=== PATIENT | female | born 1995 | race Caucasian/White ===

== ENCOUNTER 2018-12-07 15:00 | Outpatient (REF) | payer BC, SELFPAY ==
[2018-12-07 20:00] LABS: HCG Quant, Pregnancy 85 mIU/mL (1-3)
== END 2018-12-07 15:20 ==
LOC: NCHCN 15:00
PROVIDERS: PCP Nurse Practitioner Family; Visit Provider Nurse Practitioner Family
DX: N92.6 Irregular menstruation, unspecified (principal)
CPT/HCPCS: 84702

== ENCOUNTER 2018-12-27 10:44 | Outpatient (CLI) | payer BC, SELFPAY ==
--- NOTE | 2018-12-27 08:00 | DI.US_ITS ---
Many abnormalities cannot be diagnosed. A normal exam does not exclude a congenital anomaly. HISTORY: FIRST TRIMESTER BLEEDING,020.9 Date of exam: 12/27/18 LMP: 10/25/18 EDC by LMP: 08/01/19 Previous study: 9 wks Range: 8 to 10 EDC by prior us: Findings: Prior surgery/: BIOMETRY: PELVIC MEASUREMENTS: CRL: mm wks Uterus: 6.7 x 4.5 x 5.6 cm Yolk sac: mm wks Gest sac: 11 mm 5.6 wks Rt Ovary: 2.5 x 1.4 x 1.34 cm BPD: mm wks HC: mm wks Lt Ovary: 2.7 x 1.3 x 2.1 cm AC: mm wks FL: mm wks Comments: Normal (bilat) ovarian blood flow Composite Age (US): 5.6 wks EDC by US: 08/23/19 Heart Rate: BPM Amniotic Fluid: Oligo Normal Polyhydramnios Movement noted: Yes No There is a single intrauterine gestational sac. Estimated gestational age based on gestational sac size is 5 weeks 6 days. No pole or yolk sac was identified. There is a small amount of free fluid in the pelvis. The ovaries were visualized. They are normal in appearance. There is blood flow seen to both ovaries. No evidence of torsion is present. IMPRESSION: Single intrauterine gestational sac, estimated sonographic age is 5 weeks 6 days. No pole or yolk sac was identified. Based on the estimated gestational age of 9 weeks, this may represent a non viable . Follow up is recommended. This may include repeat beta HCG levels and/or repeat ultrasound. The findings were discussed with Chavez Álvarez on the date of the examination.
== END 2018-12-27 11:04 ==
PROVIDERS: PCP Nurse Practitioner Family; Visit Provider Obstetrics & Gynecology
DX: O20.9 Hemorrhage in early pregnancy, unspecified (principal); Z34.91 Encounter for supervision of normal pregnancy, unspecified, first trimester
CPT/HCPCS: 76801

== ENCOUNTER 2018-12-28 11:34 | Outpatient (CLI) | payer BC, SELFPAY ==
[2018-12-28 13:37] LABS: HCG Quant, Pregnancy 9140 mIU/mL (1-3)
== END 2018-12-28 11:54 ==
PROVIDERS: Obstetrics & Gynecology; PCP Nurse Practitioner Family; Visit Provider Obstetrics & Gynecology Gynecology
DX: Z34.90 Encounter for supervision of normal pregnancy, unspecified, unspecified trimester (principal); O20.9 Hemorrhage in early pregnancy, unspecified
CPT/HCPCS: 36415; 86900; 86901; 84702

== ENCOUNTER 2018-12-29 06:00 | Day surgery (SDC) | payer BC, SELFPAY ==
[2018-12-29 06:22] VITALS: BP 107/68; PULSE 78; RESP 16; TEMP 37.1; O2SAT 98
--- NOTE | 2018-12-29 08:22 | NUR.NOTE ---
Nursing Note: 12/29/18 @ 0810 Rhogam injection given Right deltoid Lot # [id number] exp 02/11/[address] Prescott. bmr
--- NOTE | 2018-12-29 14:39 | W.PM.DSUDISC ---
Discharge Plan Disposition Patient Disposition: HOME Condition: Good Discharge Details Attending Provider: Angeles Castle Primary Care Provider: Yen Britt Home Meds and New Rx's Prescriptions: No Action acetaminophen [Tylenol Extra Strength] 500 mg tablet 1,000 mg PO Q6H PRN (Reason: migraine headache) RF: 0 prenat.vits,asaf,upg-buai-gkpma tablet 1 tab PO DAILY RF: 0 doxycycline hyclate 100 mg capsule 100 mg PO DAILY Qty: 3 RF: 0 ibuprofen [Motrin IB] 200 mg Tablet 800 mg PO PRN PRNRF: 0 Discharge Instructions Additional Instructions: Prior to today's scheduled surgery he had side transvaginal ultrasound was performed and showed no evidence of gestational sac. The endometrial stripe measured 1.25 cm. All evidence indicates that you have tissue. Procedure has been canceled. C dose of RhoGam prior to discharge and follow-up with Dr. Castle next week at which time we will repeat the hCG. Please refrain from sexual intercourse. Nothing in the vagina no tampons until your next office visit. Stand Alone Forms: Mendez Childs (DSU) Activity:: Activity as Tolerated Diet:: As Tolerated Discharge Orders Discharge Orders: Discharge Order (Routine); Ordered 12/29/18 Ordered By: Angeles Castle Discharge Data Discharge Date/Time-TO BE ENTERED AT DEPARTURE: 12/29/18 08:20 DS: Diagnosis Discharge Diagnosis (1) SAB (spontaneous ): Status: Acute
--- NOTE | 2018-12-29 14:43 | PDOC.DSDIS_ITS ---
Discharge Plan Disposition Patient Disposition: HOME Condition: Good Discharge Details Attending Provider: Angeles Castle Primary Care Provider: Yen Britt Home Meds and New Rx's Prescriptions: No Action acetaminophen [Tylenol Extra Strength] 500 mg tablet 1,000 mg PO Q6H PRN (Reason: migraine headache) RF: 0 prenat.vits,asaf,dac-tczb-gqqwo tablet 1 tab PO DAILY RF: 0 doxycycline hyclate 100 mg capsule 100 mg PO DAILY Qty: 3 RF: 0 ibuprofen [Motrin IB] 200 mg Tablet 800 mg PO PRN PRNRF: 0 Discharge Instructions Additional Instructions: Prior to today's scheduled surgery he had side transvaginal ultrasound was performed and showed no evidence of gestational sac. The endometrial stripe measured 1.25 cm. All evidence indicates that you have tissue. Procedure has been canceled. C dose of RhoGam prior to discharge and follow-up with Dr. Castle next week at which time we will repeat the hCG. Please refrain from sexual intercourse. Nothing in the vagina no tampons until your next office visit. Stand Alone Forms: Mendez Childs (DSU) Activity:: Activity as Tolerated Diet:: As Tolerated Discharge Orders Discharge Orders: Discharge Order (Routine); Ordered 12/29/18 Ordered By: Angeles Castle Discharge Data Discharge Date/Time-TO BE ENTERED AT DEPARTURE: 12/29/18 08:20 DS: Diagnosis Discharge Diagnosis (1) SAB (spontaneous ): Status: Acute
== END 2018-12-29 08:20 | disposition home or self-care (01) ==
PROVIDERS: PCP Nurse Practitioner Family; Visit Provider Obstetrics & Gynecology Gynecology
DX: O02.0 Blighted ovum and nonhydatidiform mole (principal); O26.893 Other specified pregnancy related conditions, third trimester; Z67.41 Type O blood, Rh negative
CPT/HCPCS: 96372; 86850; 90384; 99211

== ENCOUNTER 2019-01-19 14:04 | Outpatient (CLI) | payer BC, SELFPAY ==
[2019-01-19 15:47] LABS: HCG Quant, Pregnancy 5 mIU/mL (1-3)
== END 2019-01-19 14:24 ==
PROVIDERS: PCP Nurse Practitioner Family; Visit Provider Obstetrics & Gynecology Gynecology
DX: O03.9 Complete or unspecified spontaneous abortion without complication (principal)
CPT/HCPCS: 36415; 84702

== ENCOUNTER 2019-08-27 17:07 | Outpatient (REF) | payer BC, MEDICAID, SELFPAY ==
[2019-08-27 18:48] LABS: *AMPHETAMINES SCREEN URINE Negative (Negative); *BARBITURATES SCREEN URINE Negative (Negative); *BENZODIAZEPINES SCREEN URINE Negative (Negative); Cannabinoids THC Negative (Negative); Cocaine Screen,Urine Negative (Negative); METHADONE URINE SCREEN Negative (Negative); OPIATES URINE SCREEN Negative (Negative)
[2019-08-27 18:51] LABS: Tricyclic Antidepressants Negative (Negative)
[2019-08-29 13:52] LABS: Chlamydia Result Negative (Negative); GC Result Negative (Negative)
[2019-09-01 20:32] LABS: Buprenorphine Negative; Norbuprenorphine Negative
== END 2019-08-27 17:27 ==
LOC: LBN 17:07
PROVIDERS: PCP Nurse Practitioner Family; Visit Provider Advanced Practice Midwife
DX: Z34.91 Encounter for supervision of normal pregnancy, unspecified, first trimester (principal); Z11.3 Encounter for screening for infections with a predominantly sexual mode of transmission
CPT/HCPCS: 80307; 87491; 87591; 87086

== ENCOUNTER 2019-10-15 01:42 | Outpatient (CLI) | payer MEDICAID, SELFPAY ==
--- NOTE | 2019-10-15 12:00 | DI.US_ITS ---
EXAM: US OB 2-3 TRIMESTER CLINICAL HISTORY: ROUTINE PNC, Z34.90 TECHNIQUE: Ultrasound performed using standard protocol. COMPARISON: US OB 1st trimester from 12/27/2018 FINDINGS: OB ultrasound was performed utilizing 2nd trimester protocol. biometry is consistent with gest ational age of 18 weeks 6 days and an EDC of 03/11/2020. Placenta is posterior and there is no evide nce of placenta previa. There is a normal quantity of amniotic fluid. cardiac rate is 144 BPM. anomaly screen is within normal limits as per the attached [facility] klist. DATA REPOSITORY:
[2019-10-15 12:17] LABS: Abs Immature Grans 0.03 k/cumm (0.0-0.09); Absolute Basophil Count 0.01 k/cumm (0.0-0.2); Absolute Eosinophil Count 0.04 k/cumm (0.0-0.7); Absolute Lymphocyte Count 1.58 k/cumm (1.2-3.4); Absolute Monocyte Count 0.49 k/cumm (0.11-0.7); Absolute Neutrophil Count 7.76 k/cumm (1.2-6.7); Basophils % 0.1; Eosinophils % 0.4; HCT 32.5 % (36.0-46.0); HGB 11.3 g/dL (12.0-15.5); Immature Grans % 0.3 %; Lymphocytes % 15.9; Mean Corp. HGB Concentration 34.8 g/dL (32.0-36.0); Mean Corpuscular Hemoglobin 30.1 pg (27.0-33.0); Mean Corpuscular Volume 86.4 fL (80-95); Mean Platelet Volume 9.3 fL (8.0-11.0); Monocytes % 4.9; Neutrophils % 78.4; Platelet Count 295 x1000/uL (130-400); RBC 3.76 m/cumm (4.00-5.20); RBC Distribution Width 13.6 % (11.7-14.6); White Blood Cell Count 9.91 k/cumm (4.4-10.8)
[2019-10-16 09:47] LABS: Hepatitis B Surface Ag Negative (Negative)
[2019-10-16 10:08] LABS: HIV-1/2 Ag & Ab Screen Negative (Negative)
[2019-10-16 10:19] LABS: Hepatitis C Ab w Rflx HCV PCR Negative (Negative)
[2019-10-16 10:27] LABS: Rubella IgG Ab (UVM) Positive (See Note); Varicella IgG Antibody Positive (See Note)
[2019-10-16 13:49] LABS: Syphilis Total Ab w/Reflex Nonreactive (Nonreactive)
== END 2019-10-15 02:02 ==
PROVIDERS: PCP Nurse Practitioner Family; Visit Provider Advanced Practice Midwife
DX: Z34.92 Encounter for supervision of normal pregnancy, unspecified, second trimester (principal); Z3A.18 18 weeks gestation of pregnancy
CPT/HCPCS: 36415; 86787; 86803; 86850; 86900; 86901; 87340; 87389; 76805; 85025; 86762; 86780

== ENCOUNTER 2019-12-24 12:48 | Outpatient (REF) | payer MEDICAID, SELFPAY ==
[2019-12-24 11:06] LABS: HCT 34.4 % (36.0-46.0); HGB 11.6 g/dL (12.0-15.5); Mean Corp. HGB Concentration 33.7 g/dL (32.0-36.0); Mean Corpuscular Volume 88.9 fL (80-95); Mean Platelet Volume 9.7 fL (8.0-11.0); Platelet Count 295 x1000/uL (130-400); RBC 3.87 m/cumm (4.00-5.20); RBC Distribution Width 13.3 % (11.7-14.6); White Blood Cell Count 11.34 k/cumm (4.4-10.8)
[2019-12-24 11:18] LABS: Glucose,1 Hr (Glucola) 99 mg/dL (80-140)
== END 2019-12-24 13:08 ==
LOC: LBN 12:48
PROVIDERS: PCP Nurse Practitioner Family; Visit Provider Advanced Practice Midwife
DX: Z34.93 Encounter for supervision of normal pregnancy, unspecified, third trimester (principal)
CPT/HCPCS: 82950; 85027; 86850; 90384

== ENCOUNTER 2020-02-18 06:58 | Observation (INO) | payer MEDICAID, SELFPAY ==
[2020-02-18 07:41] LABS: ROM Plus Positive
[2020-02-18 11:34] LABS: *AMPHETAMINES SCREEN URINE Negative (Negative); *BARBITURATES SCREEN URINE Negative (Negative); *BENZODIAZEPINES SCREEN URINE Negative (Negative); Cannabinoids THC Negative (Negative); Cocaine Screen,Urine Negative (Negative); METHADONE URINE SCREEN Negative (Negative); OPIATES URINE SCREEN Negative (Negative)
[2020-02-18 11:36] LABS: Tricyclic Antidepressants Negative (Negative)
[2020-02-20 15:16] LABS: Misc Referral (UVM) NEGATIVE
== END 2020-02-18 09:40 | disposition home or self-care (01) ==
LOC: OBS 10:06
PROVIDERS: Admitting Provider Advanced Practice Midwife; PCP Nurse Practitioner Family; Visit Provider Advanced Practice Midwife
DX: Z03.71 Encounter for suspected problem with amniotic cavity and membrane ruled out (principal); Z3A.36 36 weeks gestation of pregnancy; O47.1 False labor at or after 37 completed weeks of gestation
CPT/HCPCS: 80307; 84112; 87653; 59025; 87081; G0378

== ENCOUNTER 2020-02-20 14:12 | Inpatient (IN) | payer MEDICAID, SELFPAY ==
[2020-02-20 15:22] LABS: Abs Immature Grans 0.17 10^3/uL (0.0-0.06); Absolute Lymphocyte Count 2.44 10^3/uL (1.2-3.4); Absolute Monocyte Count 0.95 10^3/uL (0.1-0.8); Basophils % 0.1; Eosinophils % 0.7; HCT 34.7 % (36.0-46.0); HGB 12.1 g/dL (11.2-15.7); Immature Grans % 1.2; Lymphocytes % 17.2; MCH 29.9 pg (27.0-33.0); MCHC 34.9 % (32.0-36.0); MCV 85.7 fL (80-95); MPV 9.8 fL (8.0-11.0); Monocytes % 6.7; Neutrophils % 74.1; Platelet Count 245 10^3/uL (130-400); RBC 4.05 10^6/uL (3.93-5.22); RDW 13.2 % (11.7-14.6); RDW-SD 40.6 fL; WBC 14.16 10^3/uL (4.4-10.8)
[2020-02-20 15:24] LABS: Absolute Basophil Count 0.01 10^3/uL (0.0-0.2); Absolute Neutrophil Count 10.49 10^3/uL (1.2-6.7)
[2020-02-20] MEDS: miSOPROStol 25 MCG TAB PO (17:16)
[2020-02-20] MEDS: Zolpidem 5 MG TAB 10 MG PO (21:20)
[2020-02-21] MEDS: Hamamelis Leaf/Glycerin 100 EACH BOX PR (04:09)
[2020-02-21] MEDS: Oxytocin 10 UNITS/ML VIAL IM (04:10)
[2020-02-21 08:26] LABS: COVID-19 RT-PCR UVMMC Result Negative (Negative)
[2020-02-21 10:22] LABS: HCT 32.6 % (36.0-46.0); HGB 11.4 g/dL (11.2-15.7); MCH 29.9 pg (27.0-33.0); MCV 85.6 fL (80-95); Platelet Count 247 10^3/uL (130-400); RBC 3.81 10^6/uL (3.93-5.22); RDW-SD 39.7 fL
[2020-02-21 10:25] LABS: WBC 27.68 10^3/uL (4.4-10.8)
[2020-02-21] MEDS: Acetaminophen 325 MG TAB 650 MG PO ×2 (13:39→22:32)
[2020-02-21] MEDS: Calcium Carbonate *TUMS* 500 MG CHEW PO (15:21)
[2020-02-21] MEDS: Ibuprofen 600 MG TAB PO (22:32)
[2020-02-21] MEDS: Docusate Sodium 100 MG CAP PO (22:32)
[2020-02-22] MEDS: Ibuprofen 600 MG TAB PO ×2 (06:21→17:39)
[2020-02-22] MEDS: Acetaminophen 325 MG TAB 650 MG PO ×2 (06:21→14:29)
[2020-02-22] MEDS: Calcium Carbonate *TUMS* 500 MG CHEW PO (17:07)
[2020-02-22] MEDS: Mylanta Suspension 30 ML CUP PO (17:33)
[2020-02-22] MEDS: Docusate Sodium 100 MG CAP PO (17:39)
[2020-02-23 06:18] LABS: HCT 32.3 % (36.0-46.0); HGB 10.9 g/dL (11.2-15.7); MCH 29.7 pg (27.0-33.0); MCHC 33.7 % (32.0-36.0); MPV 9.9 fL (8.0-11.0); Platelet Count 242 10^3/uL (130-400); RBC 3.67 10^6/uL (3.93-5.22); RDW 13.3 % (11.7-14.6); RDW-SD 42.5 fL; WBC 14.66 10^3/uL (4.4-10.8)
== END 2020-02-23 13:30 | disposition home or self-care (01) | DRG 805 ==
PROVIDERS: Advanced Practice Midwife; Admitting Provider Advanced Practice Midwife; PCP Nurse Practitioner Family; Visit Provider Advanced Practice Midwife
DX: O42.013 Preterm premature rupture of membranes, onset of labor within 24 hours of rupture, third trimester (principal); O60.14X0 Preterm labor third trimester with preterm delivery third trimester, not applicable or unspecified; Z37.0 Single live birth; O69.1XX0 Labor and delivery complicated by cord around neck, with compression, not applicable or unspecified; Z3A.36 36 weeks gestation of pregnancy; Z11.59 Encounter for screening for other viral diseases; Z67.41 Type O blood, Rh negative
CPT/HCPCS: 36415; 85027; 85461; 86850; 86900; 86901; 90384; U0003; 85025; 86870; 86902; G0378; J2590; J2790; J3490

== ENCOUNTER 2020-12-09 15:03 | Outpatient (REF) | payer MEDICAID, SELFPAY ==
[2020-12-09 14:47] LABS: HCT 40.5 % (36.0-46.0); MCHC 34.6 % (32.0-36.0); MCV 83.9 fL (80-95); MPV 10.4 fL (8.0-11.0); Platelet Count 316 10^3/uL (130-400); RBC 4.83 10^6/uL (3.93-5.22); RDW 12.1 % (11.7-14.6); RDW-SD 36.9 fL; WBC 6.92 10^3/uL (4.4-10.8)
[2020-12-09 15:38] LABS: TSH (W/Ref FT4) 1.01 uIU/mL (0.36-3.74)
[2020-12-09 15:49] LABS: Iron 73 ug/dL (50-170); Total Iron Binding Capacity 468 ug/dL (250-450); Transferrin Sat 16 % (15-50)
[2020-12-09 16:02] LABS: Ferritin 27 ng/mL (8-252)
== END 2020-12-09 15:04 | disposition home or self-care (01) ==
LOC: NCHCN 15:03
PROVIDERS: PCP Nurse Practitioner Family; Visit Provider Nurse Practitioner Family
DX: R53.83 Other fatigue (principal); R79.89 Other specified abnormal findings of blood chemistry
CPT/HCPCS: 85027; 82728; 83540; 83550; 84443

== ENCOUNTER 2021-08-03 04:15 | Outpatient (CLI) | payer MEDICAID, SELFPAY ==
[2021-08-03 15:42] LABS: Kit/Specimen SENT
[2021-08-03 16:40] LABS: Abs Immature Grans 0.03 10^3/uL (0.0-0.06); Absolute Basophil Count 0.03 10^3/uL (0.0-0.2); Absolute Eosinophil Count 0.16 10^3/uL (0.0-0.7); Absolute Lymphocyte Count 2.43 10^3/uL (1.2-3.4); Absolute Monocyte Count 0.49 10^3/uL (0.1-0.8); Absolute Neutrophil Count 7.96 10^3/uL (1.2-6.7); Basophils % 0.3; Eosinophils % 1.4; HCT 37.3 % (36.0-46.0); HGB 12.9 g/dL (11.2-15.7); Immature Grans % 0.3; Lymphocytes % 21.9; MCH 29.3 pg (27.0-33.0); MCHC 34.6 % (32.0-36.0); MCV 84.8 fL (80-95); Monocytes % 4.4; Neutrophils % 71.7; Nucleated RBC 0 %; Platelet Count 320 10^3/uL (130-400); RDW 12.6 % (11.7-14.6); RDW-SD 38.8 fL
[2021-08-03 17:01] LABS: TSH (W/Ref FT4) 0.86 uIU/mL (0.36-3.74)
[2021-08-04 10:28] LABS: Varicella IgG Antibody Positive (See Note)
[2021-08-04 10:30] LABS: Hepatitis B Surface Ag Negative (Negative)
[2021-08-04 10:38] LABS: Rubella IgG Ab (UVM) Positive (See Note)
[2021-08-04 11:08] LABS: Hepatitis C Ab w Rflx HCV PCR Negative (Negative)
[2021-08-04 11:23] LABS: HIV-1/2 Ag & Ab Screen Negative (Negative)
[2021-08-04 15:00] LABS: Syphilis Total Ab w/Reflex Nonreactive (Nonreactive)
[2021-08-11 13:10] LABS: Result Summary NEGATIVE; Specimen WB Whole Blood
== END 2021-08-03 04:16 | disposition home or self-care (01) ==
LOC: LBO 04:16
PROVIDERS: PCP Nurse Practitioner Family; Visit Provider Advanced Practice Midwife
DX: Z34.81 Encounter for supervision of other normal pregnancy, first trimester
CPT/HCPCS: 36415; 86787; 86803; 86850; 86900; 86901; 87340; 87389; 81220; 84443; 85025; 86762; 86780

== ENCOUNTER 2021-08-03 15:05 | Outpatient (REF) | payer MEDICAID, SELFPAY ==
--- NOTE | 2021-08-03 14:10 | PAPFT_PTH ---
PATIENT: Marta Martínez LOC: [facility] U#:[id number] AGE/SX: 25/F ROOM: RE08/03/[address]: Kelsey Adler : 1995 BED: DIS: 08/03/2021 SPEC #: [id number] RECD: 08/03/21 17:37 STATUS: ROSE REQ #: [id number] WISAM: 08/03/21 14:[address]: Kelsey Adler DEPT: [facility] Cytology RECD BY: Yoanna Schroeder ENTERED: 08/03/21 17:37 SP TYPE: PAPFT OTHR DR: Caroline Mccallum Tissues: 1 - CX/ENDOCX FOR PAP SMEARS Procedures: PAP THIN PREP/UVM Screening Comments: [id number]
[2021-08-03 18:08] LABS: *AMPHETAMINES SCREEN URINE Negative (Negative); *BARBITURATES SCREEN URINE Negative (Negative); *BENZODIAZEPINES SCREEN URINE Negative (Negative); Cannabinoids THC Negative (Negative); Cocaine Screen,Urine Negative (Negative); METHADONE URINE SCREEN Negative (Negative); OPIATES URINE SCREEN Negative (Negative)
[2021-08-03 18:48] LABS: Tricyclic Antidepressants Negative (Negative)
[2021-08-05 15:27] LABS: Chlamydia Result Negative (Negative); GC Result Negative (Negative)
[2021-08-08 14:57] LABS: Buprenorphine Negative ng/mL (Cutoff: 5.0); Norbuprenorphine Negative ng/mL (Cutoff: 2.5)
== END 2021-08-03 15:06 | disposition home or self-care (01) ==
LOC: LBN 15:05
PROVIDERS: PCP Nurse Practitioner Family; Visit Provider Advanced Practice Midwife
DX: Z34.91 Encounter for supervision of normal pregnancy, unspecified, first trimester; Z12.4 Encounter for screening for malignant neoplasm of cervix; Z11.3 Encounter for screening for infections with a predominantly sexual mode of transmission
CPT/HCPCS: 80307; 87491; 87591; 88142; 87086

== ENCOUNTER 2021-09-25 00:58 | Outpatient (CLI) | payer MEDICAID, SELFPAY ==
--- NOTE | 2021-09-25 07:00 | DI.US_ITS ---
Exam(s) US OB 2-3 TRIMESTER EXAM: US OB 2-3 TRIMESTER CLINICAL HISTORY: 18 wk anatomy survey,z34.90. TECHNIQUE: Transabdominal obstetrical ultrasound performed. COMPARISON: No priors for comparison. FINDINGS: Transabdominal obstetrical ultrasound performed. FINDINGS: Number of fetuses: One. position: Breech. heart rate: heart motion was visualized. The heart rate was not obtained during th is examination. Placental location: There is a grade 1 anterior placenta. No evidence of previa. Amniotic fluid index: Amount of fluid is within normal limits. ANATOMICAL SURVEY: Within normal limits. BIOMETRIC DATA: BPD: 4.5cm consistent with 19 weeks 3 days. HC: 16.7cm consistent with 19 weeks 3 days. AC: 14.1cm consistent with 19 weeks 3 days. FL: 3.1cm consistent with 19 weeks 3 days. Cisterna Magna: 3.6 mm Cerebellum: 1.93 cm EFW: 293 grms 46% Composite Age: 19 weeks 3 days EDC by US: 02/16/2022 IMPRESSION: 1. Single live intrauterine gestation as above. 2. Normal anatomic survey. DATA REPOSITORY:
== END 2021-09-25 01:18 ==
PROVIDERS: PCP Nurse Practitioner Family; Visit Provider Advanced Practice Midwife
DX: Z34.92 Encounter for supervision of normal pregnancy, unspecified, second trimester (principal); Z3A.18 18 weeks gestation of pregnancy
CPT/HCPCS: 76805

== ENCOUNTER 2021-11-24 02:37 | Outpatient (CLI) | payer MEDICAID, SELFPAY ==
[2021-11-24 10:12] LABS: HCT 33.8 % (36.0-46.0); HGB 11.2 g/dL (11.2-15.7); MCH 29.2 pg (27.0-33.0); MCHC 33.1 % (32.0-36.0); MCV 88 fL (80-95); MPV 9.6 fL (8.0-11.0); Platelet Count 241 10^3/uL (130-400); RBC 3.83 10^6/uL (3.93-5.22); RDW 13.2 % (11.7-14.6); RDW-SD 42.2 fL; WBC 11.54 10^3/uL (4.4-10.8)
[2021-11-24 10:22] LABS: Glucose,1 Hr (Glucola) 92 mg/dL (80-140)
== END 2021-11-24 02:38 | disposition home or self-care (01) ==
LOC: LBO 02:37
PROVIDERS: PCP Nurse Practitioner Family; Visit Provider Advanced Practice Midwife
DX: O36.0130 Maternal care for anti-D [Rh] antibodies, third trimester, not applicable or unspecified (principal); Z3A.28 28 weeks gestation of pregnancy
CPT/HCPCS: 36415; 82950; 85027; 86850; 90384

== ENCOUNTER 2022-01-01 11:08 | Outpatient (CLI) | payer MEDICAID, SELFPAY ==
[2022-01-01 11:26] VITALS: BP 116/68; PULSE 81; TEMP 36.6
[2022-01-01 11:30] VITALS: BP 116/68; PULSE 81
[2022-01-01 11:42] VITALS: BP 116/68; PULSE 81
--- NOTE | 2022-01-01 11:55 | HPE_ITS ---
Date of service: 01/01/22 Time of Service: 11:55 Assessment and Plan Assessment and plan (1) Pelvic pressure in : Status: Acute Assessment and plan: NST and GBS swab. Cean catch urine for urinalysis, culture if indicated. Rest an fluids encouraged. OB-HPI Labor/Delivery History of Present Illness Reason for Visit: rule out labor Chief Complaint: Other (pelvic pressure and clear discharge). DESHAUN Calculator Estimated Delivery Date Method Current WG Current Estimate 02/16/22 LMP (Certain) 33w 3d Other Estimates 02/15/22 Ultrasound #1 33w 4d Comments: Marta called and reports pelvic pressure. She has been experiencing clear thick discharge. She denies leaking of water. She reports occasional abdominal tightening. She reported to nurse on admission that she has not been drinking a lot of water today. History of Present Expected Delivery Route/Plan - CNM FOB/ - William Martínez (2nd child together) BG Would like to have a waterbirth Specific Issues/Plan 1. Migraines in the past- not during . 2. GERD - no symptoms currently after stopping NSAIDS 3. palpitations and heart murmur in the past- cardiac workup neg in the past. Avoids caffeine 4. Fam Hx heart defect - FOB's uncle and brother - Level II US offered- referral sent to [facility] 5. Genetic testing options reviewed - Panorama and CF drawn. Declines AFP single marker screen. 5a. CF neg. Panorama result is low risk, female fetus. 6. Rh neg - Rhogam @ 28 wks, done 11/24/21 7. /latching difficulty with first baby- visit 8. Amilcar are covid vaccinated, haven't received booster 9. Sciatica, neck pain and tailbone pain after 1st - referred to [facility]. 10. heartburn - Taking TUMS and milk for relief. PFSH All Active Problems (Updated 01/01/22 @ 12:01 by Kelsey Adler CNM) Pelvic pressure in (Acute) Rh negative state in antepartum period (Acute) Coccygeal pain (Acute) since first delivery Neck pain (Acute) Sciatica (Acute) (Acute) Heart murmur (Acute) Tension headache (Acute 03/04/15) Migraine headache with aura (Acute 03/04/15) Medical History (Updated 01/01/22 @ 12:01 by Kelsey Adler CNM) Anxiety after her first . Saw a counselor Family history of thyroid disease GERD (gastroesophageal reflux disease) Palpitations Surgical History History of esophagogastroduodenoscopy (EGD) Family History (Updated 08/03/21 @ 14:58 by Kelsey Adler CNM) Mother Hypertension Ulcerative colitis Migraine Maternal Grandfather Parkinsons COPD (chronic obstructive pulmonary disease) Diabetes Hypertension Maternal Grandmother Rheumatoid arthritis Hypertension Thyroid disease Brother Depression Social History (Updated 12/28/18 @ 17:44 by Angeles Castle MD) Smoking/Tobacco Use Status: Never Smoking risk assessment performed?: Yes Alcohol Intake: current Alcohol Intake frequency: a few times a month Alcohol type: beer and wine Drug use: Never Substance use type: does not use Details: No alcohol since the end of september, in the past may have one beer or wine cooler every week or so. Household members: spouse and other Details: during the summer. H - works on local [employer]. 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 Do you feel safe at home: Yes Do you feel safe in your relationship?: Yes Female Reproductive History Menstrual Age of Menarche: 13 control method: none History History 3 Para 1 Hx # Term Pregnancies 1 Multiple births 0 Hx # Pregnancies 0 Ectopic pregnancies 0 AB induced 0 Hx Number of Living Children 1 AB spontaneous 1 Past Pregnancies Del. Date GA/Weeks # Outcome Route Wgt Sex Labor Lgth Anesthes ia Location Prov Complic 12/28/18 9 No Unsuccessful 02/21/20 37 No Successful vaginal Female 6 hours K athleen Delivery Date: 12/28/18 Last Updated by: Mary Chow LPN 1st trimester loss, SAB, Dr. Castle Delivery Date: 02/21/20 Last Updated by: Kelsey Adler CNM IOL for PROM at 37 weeks, took only one miso, fast labor, deliv H&K on ball, Tasha Meds Allergies and Home Medications Allergies Allergy/AdvReac Type Severity Reaction Status Date / Time azithromycin Allergy Mild RASH Verified 12/24/21 08:30 naproxen AdvReac Intermediate Nausea Verified 12/24/21 08:30 PEDIZOL Allergy Intermediate I have Uncoded 12/24/21 08:30 trouble breathing Home Medications Medication Instructions Recorded Confirmed Type acetaminophen 500 mg tablet 1,000 mg PO Q6H PRN migraine 12/08/18 12/08/21 History (Tylenol Extra Strength) headache prenat.vits,asaf,jpj-nomi-ctokc 1 tab PO DAILY 12/26/18 12/08/21 History loratadine 10 mg tablet (Claritin) 10 mg PO PRN PRN 12/24/19 12/08/21 History Exam Physical Exam Vital signs: Pulse BP 81 116/68 01/01/22 11:42 01/01/22 11:42 Detailed Labor and Delivery Exam Calderon Score: Cervical Points Exam 0 1 2 3 Dilation Closed 1-2cm 3-4 cm 5-6cm Effacement 0-30% 40-50% 60-70% 80% Consistency Firm Medium Soft Station -3 -2 -1,0 +1,+2 Position Posterior Mid Anterior Amniotic Membrane Status: Intact Pooling: Negative Monitor Mode: External Contraction Frequency(min): occasional Contraction Duration(sec): 30 Contraction Intensity: Mild Fetus A Heart Rate Baseline: 140 Monitor Accelerations: 15 X 15 Monitor Decelerations: None Variability: Moderate (6-25 BPM) Presentation: Vertex Categories: Category I Respiratory Exam Respiratory Exam: Normal Cardiovascular Exam Cardiovascular Exam: Normal Exam Exam: Normal (no pooling) Extremities Exam Extremities Exam: Normal Skin Exam Skin Exam: Normal Psychiatric Exam Psychiatric Exam: Normal Risk Assessment Risk for Shoulder Dystocia Historical/Initial OB: NEGATIVE FOR: Pelvic Abnormality, Pre- BMI>30, Previous Shoulder Dystocia or Previous Macrosomia Increased Risk?: No Risk for Pre-Eclampsia Daily Dose ASA Indicated: No Yes, if one or more: NEGATIVE FOR: Hx Pre-E/Gest HTN, Chronic HTN, Multiple Gestation, Pre-gestational DM, Renal Disease, Systemic Lupus or APA Syndrome Risk for Post- Hemorrhage Initial: NEGATIVE FOR: Multiple Gestation, Previous PPH, Known Clotting Deficiency, Grand Multiparity or Anticoagulation At Risk?: No Risks Reviewed Risks Reviewed Upon Admission: Yes
[2022-01-01 12:01] VITALS: BP 116/68; PULSE 81; RESP 16; TEMP 36.6; O2SAT 99
[2022-01-01 12:02] LABS: Bilirubin Negative (Negative); Blood Negative (Negative); Clarity Clear (Clear); Glucose Negative (Negative); Ketones Negative (Negative); Leukocyte Esterase Trace (Negative); Nitrite Negative (Negative); Urobilinogen 0.2 EU/dL (Up TO 0.2)
[2022-01-01 12:09] LABS: Bacteria Negative HPF (Negative); C & S Indicated? No/Sq. Contamination; Casts Negative LPF (Negative); Crystals Negative HPF (Negative); Epithelial Cells Moderate HPF (Negative); Mucus Negative (Negative); RBC Negative HPF (0-2); WBC 0-2 HPF (0-5)
--- NOTE | 2022-01-01 12:13 | DSE_ITS ---
Date of service: 01/01/22 Time of Service: 12:13 DS: Diagnosis Discharge Diagnosis (1) Pelvic pressure in : Status: Acute Asessment and Plan: GBS taken. Urine dip is negative. Marta is having occasional mild contractions which she is not aware of. She was instructed to rest at home and take adequate fluids. Call if regular contractions occur. Discharge Plan Discharge Details Reason For Visit: rule out labor Attending Provider: Kelsey Adler Primary Care Provider: Caroline Mccallum Home Meds and New Rx's Prescriptions: Continued acetaminophen [Tylenol Extra Strength] 500 mg tablet 1,000 mg PO Q6H PRN (Reason: migraine headache) Label Comments: PRN prenat.vits,asaf,kqk-lukb-lhdod tablet 1 tab PO DAILY loratadine [Claritin] 10 mg tablet 10 mg PO PRN PRN Label Comments: PRN Discharge Instructions Activity:: Activity as Tolerated Activity:: Activity as Tolerated Equipment/Supplies:: No Equipment Needed Diet:: As Tolerated Discharge Orders Discharge Orders: Discharge Order (Routine); Ordered 01/01/22 Ordered By: Kelsey Adler OB:DS Summary Contraception Discussed Contraception Discussed: No, Status at Discharge Functional status at discharge: independent ambulation Overall status at discharge: patient is back to baseline Mental Status: mental status grossly normal Speech and Movement: speech and movement normal Mood: congruent mood Affect: normal affect Exam Physical Exam Vital signs: Temp Pulse Resp BP Pulse Ox 97.8 F 81 16 116/68 99 01/01/22 12:01 01/01/22 12:01 01/01/22 12:01 01/01/22 12:01 01/01/22 12:01 [facility] All Active Problems (Updated 01/01/22 @ 12:01 by Kelsey Adler CNM) Pelvic pressure in (Acute) Rh negative state in antepartum period (Acute) Coccygeal pain (Acute) since first delivery Neck pain (Acute) Sciatica (Acute) (Acute) Heart murmur (Acute) Tension headache (Acute 03/04/15) Migraine headache with aura (Acute 03/04/15) Medical History (Updated 01/01/22 @ 12:01 by Kelsey Adler CNM) Anxiety after her first . Saw a counselor Family history of thyroid disease GERD (gastroesophageal reflux disease) Palpitations Surgical History History of esophagogastroduodenoscopy (EGD) Family History (Updated 08/03/21 @ 14:58 by Kelsey Adler CNM) Mother Hypertension Ulcerative colitis Migraine Maternal Grandfather Parkinsons COPD (chronic obstructive pulmonary disease) Diabetes Hypertension Maternal Grandmother Rheumatoid arthritis Hypertension Thyroid disease Brother Depression Social History (Updated 12/28/18 @ 17:44 by Angeles Castle MD) Smoking/Tobacco Use Status: Never Smoking risk assessment performed?: Yes Alcohol Intake: current Alcohol Intake frequency: a few times a month Alcohol type: beer and wine Drug use: Never Substance use type: does not use Details: No alcohol since the end of september, in the past may have one beer or wine cooler every week or so. Household members: spouse and other Details: during the summer. H - works on local [employer]. 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 Do you feel safe at home: Yes Do you feel safe in your relationship?: Yes Female Reproductive History Menstrual Age of Menarche: 13 control method: none History History 3 Para 1 Hx # Term Pregnancies 1 Multiple births 0 Hx # Pregnancies 0 Ectopic pregnancies 0 AB induced 0 Hx Number of Living Children 1 AB spontaneous 1 Past Pregnancies Del. Date GA/Weeks # Outcome Route Wgt Sex Labor Lgth Anesthes ia Location [facility] 12/28/18 9 No Unsuccessful 02/21/20 37 No Successful vaginal Female 6 hours K athleen Delivery Date: 12/28/18 Last Updated by: Mary Chow LPN 1st trimester loss, SAB, Dr. Castle Delivery Date: 02/21/20 Last Updated by: Kelsey Adler CNM IOL for PROM at 37 weeks, took only one miso, fast labor, deliv H&K on Tasha stinson DS: Data Vitals/I&O Vitals and I&O: Vital Signs Temperature 97.8 F 01/01/22 12:01 Pulse 81 01/01/22 12:01 Pulse Rhythm Regular 01/01/22 11:42 Respiratory Rate 16 01/01/22 12:01 Respiratory Depth Normal 01/01/22 11:42 Blood Pressure 116/68 01/01/22 12:01 Pulse Oximetry 99 01/01/22 12:01 Data Completed and Pending Labs on day of discharge: Labs from last 24 hours 01/01/22 11:51 Urine Color Yellow Urine Clarity Clear Urine pH 7.0 Ur Specific [place] 1.020 Urine Protein Negative Urine Ketones Negative Urine Blood Negative Urine Nitrite Negative Urine Bilirubin Negative Urine Urobilinogen 0.2 Ur Leukocyte Esterase Trace H Urine RBC Negative Urine WBC 0-2 Ur Epithelial Cells Moderate Urine Crystals Negative Urine Bacteria Negative Urine Casts Negative Urine Mucus Negative Ur Culture Indicated? No/Sq. Contamination Urine Glucose Negative 01/01/22 11:50 Vaginal/Rectal Group B Streptococcus Culture - Pending Preliminary micro results at discharge 01/01/22 11:50 Group B Streptococcus Culture - Pending Vaginal/Rectal
[2022-01-01 12:18] VITALS: BP 116/68; PULSE 81; TEMP 36.6
--- NOTE | 2022-01-01 12:23 | W.OBNST ---
Date of service: 01/01/22 Time of Service: 12:23 NST Evaluation Reason for NST Reasons for Nonstress Test: LABOR Reason for NST Other: question labor Gestational Age Gestational Age in Weeks and Days: 33 Weeks and 3Days Test and Monitor Explained Test/Monitor Explained: Test Explained, Monitor Explained and Patient Verbalized Understanding Vital Signs Blood Pressure: 116/68 Pulse: 81 Temperature: 97.8 F Urine Results Urine Protein: Negative Urine Ketones: Negative Urine Glucose: Negative Urine Blood: Negative NST Information Date on Monitor: 01/01/22 Time on Monitor: 11:28 Date off Monitor: 01/01/22 Time off Monitor: 12:10 Total Time on Monitor: 42 NST Interventions: PO Hydration Contraction Frequency: x2 NST Evaluation Patient States Movement: Present FHR Baseline: 150 Variability: Moderate 6-25 bpm Accelerations: 15x15 Decelerations: None NST Results: Reactive Note NST Note Note: Marta was evaluated for pelvic pressure and clear thick discharge. No evidence of labor. precautions reviewed. NST Reviewed and Verified by: Kelsey Adler
[2022-01-01 12:24] VITALS: BP 116/68; PULSE 81; TEMP 36.6
== END 2022-01-01 12:20 | disposition home or self-care (01) ==
LOC: BCD 11:09 → OBS 11:13
PROVIDERS: PCP Nurse Practitioner Family; Visit Provider Advanced Practice Midwife
DX: O60.14X0 Preterm labor third trimester with preterm delivery third trimester, not applicable or unspecified (principal)
CPT/HCPCS: 59025; 81003; 81015; 87081

== ENCOUNTER 2022-01-04 12:39 | Outpatient (CLI) | payer MEDICAID, SELFPAY ==
[2022-01-04 12:57] VITALS: BP 104/59; PULSE 79; TEMP 36.7
[2022-01-04 13:24] VITALS: BP 104/59; PULSE 79
[2022-01-04 13:47] LABS: ROM Plus Negative
--- NOTE | 2022-01-04 14:07 | W.OBNST ---
Date of service: 01/04/22 Time of Service: 14:07 NST Evaluation Reason for NST Reasons for Nonstress Test: OTHER, SEE COMMENT Reason for NST Other: R/O SROM Gestational Age Gestational Age in Weeks and Days: 33 Weeks and 6Days Test and Monitor Explained Test/Monitor Explained: Test Explained, Monitor Explained and Patient Verbalized Understanding Vital Signs Blood Pressure: 104/59 Pulse: 79 Temperature: 98.1 F NST Information Date on Monitor: 01/04/22 Time on Monitor: 12:41 Date off Monitor: 01/04/22 Time off Monitor: 13:20 Total Time on Monitor: 39 NST Interventions: None NST Evaluation Patient States Movement: Present FHR Baseline: 130 Variability: Moderate 6-25 bpm Accelerations: 15x15 Decelerations: None NST Results: Reactive Note NST Note Note: Marta has been wearing a pad and continues to report leaking of fluid. She denies intercourse or odor to discharge. Sterile speculum exam performed. neg pooling, equivocal nitrazine. Neg fern test. ROM plus taken and vaginal pathogen screen taken. Await results. pos. LORI whkendy and i discussed signs of bacterial vaginosis with Marta. She has had BV in the past. I recommended treatment for BV at this time. Await results of ROM plus and vag pathogen screen. NST Reviewed and Verified by: Kelsey Adler
[2022-01-04 14:09] VITALS: BP 104/59; PULSE 79; TEMP 36.7
== END 2022-01-04 13:25 | disposition home or self-care (01) ==
LOC: BCD 12:41 → OBS 12:46
PROVIDERS: PCP Nurse Practitioner Family; Visit Provider Advanced Practice Midwife
DX: O88.113 Amniotic fluid embolism in pregnancy, third trimester (principal)
CPT/HCPCS: 59025; 84112; 87480; 87510; 87660

== ENCOUNTER 2022-01-16 23:55 | Observation (INO) | payer MEDICAID, SELFPAY ==
[2022-01-16 23:28] VITALS: BP 111/62; PULSE 85
--- NOTE | 2022-01-16 23:57 | HPE_ITS ---
Date of service: 01/16/22 Time of Service: 11:45 Assessment and Plan Assessment and plan (1) Irregular uterine contractions: Status: Acute Assessment and plan: 1. Not in active labor 2. Will observe, PO hydrate and encourage rest 3. Plan to reassess in 2 hours or as indicated 4. Reviewed that it is best for baby to be full term prior to delivery and if baby does deliver prior to 37 weeks it is considered a baby and can have complications. [facility] OB-HPI Labor/Delivery History of Present Illness Reason for Visit: contractions Chief Complaint: Uterine Contractions. DESHAUN Calculator Estimated Delivery Date Method Current WG Current Estimate 02/16/22 LMP (Certain) 35w 5d Other Estimates 02/15/22 Ultrasound #1 35w 6d History of Present Expected Delivery Route/Plan - CNM FOB/ - William Martínez (2nd child together) BG Would like to have a waterbirth GBS neg 01/01, repeat after 01/31 Specific Issues/Plan 1. Migraines in the past- not during . 2. GERD - no symptoms currently after stopping NSAIDS 3. palpitations and heart murmur in the past- cardiac workup neg in the past. Avoids caffeine 4. Fam Hx heart defect - FOB's uncle and brother - Level II US offered- referral sent to [facility] 5. Genetic testing options reviewed - Panorama and CF drawn. Declines AFP single marker screen. 5a. CF neg. Panorama result is low risk, female fetus. 6. Rh neg - Rhogam @ 28 wks, done 11/24/21 7. /latching difficulty with first baby- visit 8. Marta and Ozzy are covid vaccinated, haven't received booster 9. Sciatica, neck pain and tailbone pain after 1st - referred to [facility]. 10. heartburn - Taking TUMS and milk for relief. 11. vaginal discharge and contractions - treated for BV, wet prep pos/ vag pathogen screen neg. Narrative: Marta presents to triage with complaint of regular and uncomfortable contractions since approximately 2100. Denies LOF or vaginal bleeding. Reports she has been hydrating well today and is tolerating regular diet well. She feels like these contractions are more like labor than when she presented with contractions on 01/01/22. Significant other is present but napping in chair. Patient appears comfortable and was talking on her phone when I arrived to assess her. She agrees to a period of observation as well as PO hydration and rest. KH Review of Systems All systems reviewed & are unremarkable except as noted in HPI and below Genitourinary Comments: irregular contractions PFSH All Active Problems (Updated 01/17/22 @ 00:06 by Kelsey Grayson CNM) Irregular uterine contractions (Acute) Rh negative state in antepartum period (Acute) Coccygeal pain (Acute) since first delivery Neck pain (Acute) Sciatica (Acute) (Acute) Heart murmur (Acute) Tension headache (Acute 03/04/15) Migraine headache with aura (Acute 03/04/15) Medical History Anxiety after her first . Saw a counselor Family history of thyroid disease GERD (gastroesophageal reflux disease) Palpitations Surgical History History of esophagogastroduodenoscopy (EGD) Family History Mother Hypertension Ulcerative colitis Migraine Maternal Grandfather Parkinsons COPD (chronic obstructive pulmonary disease) Diabetes Hypertension Maternal Grandmother Rheumatoid arthritis Hypertension Thyroid disease Brother Depression Social History Smoking/Tobacco Use Status: Never Smoking risk assessment performed?: Yes Alcohol Intake: current Alcohol Intake frequency: a few times a month Alcohol type: beer and wine Drug use: Never Substance use type: does not use Details: No alcohol since the end of september, in the past may have one beer or wine cooler every week or so. Household members: spouse and other Details: during the summer. H - works on local [employer]. 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 Do you feel safe at home: Yes Do you feel safe in your relationship?: Yes Female Reproductive History Menstrual Age of Menarche: 13 control method: none History History 3 Para 1 Hx # Term Pregnancies 1 Multiple births 0 Hx # Pregnancies 0 Ectopic pregnancies 0 AB induced 0 Hx Number of Living Children 1 AB spontaneous 1 Past Pregnancies Del. Date GA/Weeks # Preg Succ Route Wgt Sex Labor Lgth Anesth esia Location Prov Complic 12/28/18 9 No 02/21/20 37 No vaginal Female 6 hours [place] Delivery Date: 12/28/18 Last Updated by: Mary Chow LPN 1st trimester loss, SAB, Dr. Castle Delivery Date: 02/21/20 Last Updated by: Kelsey Adler CNM IOL for PROM at 37 weeks, took only one miso, fast labor, deliv hands and knees on ball, Tasha Meds Allergies and Home Medications Allergies Allergy/AdvReac Type Severity Reaction Status Date / Time azithromycin Allergy Mild RASH Verified 01/17/22 00:04 naproxen AdvReac Intermediate Nausea Verified 01/17/22 00:04 PEDIZOL Allergy Intermediate I have Uncoded 01/17/22 00:04 trouble breathing Home Medications Medication Instructions Recorded Confirmed Type acetaminophen 500 mg tablet 1,000 mg PO Q6H PRN migraine 12/08/18 01/17/22 History (Tylenol Extra Strength) headache prenat.vits,asaf,[id number]-ropit 1 tab PO DAILY 12/26/18 01/17/22 History Exam Physical Exam Vital Signs Reviewed: Yes Constitutional Constitutional: no acute distress Detailed Labor and Delivery Exam Dilation: 0 (external OS is 1 cm, internal OS is closed) Effacement (%): 30 station: -2 Consistency: soft Lazaro Score: Cervical Points Exam 0 1 2 3 Dilation Closed 1-2cm 3-4 cm 5-6cm Effacement 0-30% 40-50% 60-70% 80% Consistency Firm Medium Soft Station -3 -2 -1,0 +1,+2 Position Posterior Mid Anterior LAZARO Score(Cervical Ripeness Score): 3 Amniotic Membrane Status: Intact Contraction Frequency(min): 2-4 Contraction Duration(sec): 60 Contraction Intensity: Mild Fetus A Heart Rate Baseline: 135 Monitor Accelerations: 15 X 15 Monitor Decelerations: None Variability: Moderate (6-25 BPM) Presentation: Cephalic Categories: Category I HEENT Exam HEENT Exam: Normal Neck Exam Neck Exam: Normal Chest/Brest/Axilla Exam Chest Exam: Not Done Breast Exam Breast Exam: Not Done Respiratory Exam Respiratory Exam: Normal Cardiovascular Exam Cardiovascular Exam: Normal Abdominal Exam Abdominal Exam: Normal (gravid uterus, fundus non tender, contractions mild to palpation.KH) Exam Exam: Normal Extremities Exam Extremities Exam: Normal Back/Spine/Pelvis Exam Pelvis Adequate: Yes Skin Exam Skin Exam: Normal Neurological Exam Neurological Exam: Normal Psychiatric Exam Psychiatric Exam: Normal Results Results Group Beta Strep: Negative Blood Type: O- Rubella Status: Immune Varicella Immunity: Immune Risk Assessment Risk for Shoulder Dystocia Historical/Initial OB: NEGATIVE FOR: Pelvic Abnormality, Pre- BMI>30, Previous Shoulder Dystocia or Previous Macrosomia Delivery Plan @ 36wks: Risk for Pre-Eclampsia Yes, if one or more: NEGATIVE FOR: Hx Pre-E/Gest HTN, Chronic HTN, Multiple Gestation, Pre-gestational DM, Renal Disease, Systemic Lupus or APA Syndrome Risk for Post- Hemorrhage Initial: NEGATIVE FOR: Multiple Gestation, Previous PPH, Known Clotting Deficiency, Grand Multiparity or Anticoagulation Risks Reviewed Risks Reviewed Upon Admission: Yes
--- NOTE | 2022-01-17 00:09 | W.OBNST ---
Date of service: 01/16/22 Time of Service: 23:45 NST Evaluation Reason for NST Reasons for Nonstress Test: OTHER, SEE COMMENT Reason for NST Other: rule out labor Gestational Age Gestational Age in Weeks and Days: 35 Weeks and 5Days Test and Monitor Explained Test/Monitor Explained: Test Explained and Monitor Explained Vital Signs Blood Pressure: 111/62 Pulse: 85 Urine Results Urine Protein: Negative Urine Ketones: Negative Urine Glucose: Negative Urine Blood: Negative NST Information Date on Monitor: 01/16/22 Time on Monitor: 23:18 Date off Monitor: 01/16/22 Time off Monitor: 23:53 Total Time on Monitor: 35 NST Interventions: PO Hydration Contraction Frequency: 5-8 NST Evaluation Patient States Movement: Present FHR Baseline: 135 Variability: Moderate 6-25 bpm Accelerations: 15x15 Decelerations: None NST Results: Reactive Note NST Note Note: Irregular, mild contractions noted, patient is not in distress. She denies ROM or bloody show. She states contractions became more uncomfortable at approximately 2100. VE 0/30/-2 posterior and soft. Plan to PO hydrate and reassess in 2 hours unless patient is able to sleep. Then will reassess when she wakes. Recent GBS negative. NST is reactive and reassuring. NIURKA NST Reviewed and Verified by: Kelsey Grayson
[2022-01-17 00:11] VITALS: BP 111/62; PULSE 85
--- NOTE | 2022-01-17 02:08 | DSE_ITS ---
Date of service: 01/17/22 Time of Service: 02:09 DS: Diagnosis Discharge Diagnosis (1) Irregular uterine contractions: Status: Acute Asessment and Plan: 1. contractions have become less frequent and less painful. Patient requests discharge to home in order to sleep. 2. Will keep appointment as scheduled 01/22/22. Discharge Plan Disposition Patient Disposition: HOME Condition: Good Discharge Details Reason For Visit: contractions Admit Date/Time: 01/16/22 23:55 Admit Provider: Kelsey Grayson Attending Provider: Kelsey Grayson Primary Care Provider: [facility] Hospital Course: Marta presented for evaluation of contractions that were more uncomfortable than in the past. No LOF or vaginal bleeding. Had reactive NST. Over 2 hours of observation she had a few david garcia contractions but was able to rest and denies any further discomfort. She requests discharge to home and will keep her appointment on 01/22/22. Home Meds and New Rx's Prescriptions: Continued acetaminophen [Tylenol Extra Strength] 500 mg tablet 1,000 mg PO Q6H PRN (Reason: migraine headache) Label Comments: PRN prenat.vits,asaf,[id number]-[id number] tablet 1 tab PO DAILY Discharge Instructions Activity:: Activity as Tolerated Equipment/Supplies:: No Equipment Needed Diet:: As Tolerated Discharge Orders Discharge Orders: Discharge Order (Routine); Ordered 01/17/22 Ordered By: Kelsey Grayson OB:DS Summary Summary Procedures: N/A Contraception Discussed Contraception Discussed: No (antepartum patient.), Status at Discharge Functional status at discharge: independent ambulation Overall status at discharge: patient is back to baseline Mental Status: mental status grossly normal Speech and Movement: speech and movement normal Mood: congruent mood Affect: normal affect Time Spent with Patient providing and/or coordinating discharge services: Less than 30 minutes Specific discharge activities: review of labor and when to seek care, importance of keeping appointment 01/22/22 Exam Physical Exam Vital Signs Reviewed: Yes Constitutional Constitutional: no acute distress HEENT Exam HEENT Exam: Normal Neck Exam Neck Exam: Not Done Respiratory Exam Respiratory Exam: Normal Cardiovascular Exam Cardiovascular Exam: Normal Abdominal Exam Comments: occasional BH contractions, otherwise normal 35w5d uterine assessment. Rectal Exam Rectal Exam: Not Done Extremities Exam Extremity Exam: Normal Back/Spine/Pelvis Exam Back Exam: Not Done Skin Exam Skin Exam: Normal Neurological Exam Neurological Exam: Normal Psychiatric Exam Psychiatric Exam: Normal PFSH All Active Problems (Updated 01/17/22 @ 00:06 by Kelsey Grayson CNM) Irregular uterine contractions (Acute) Rh negative state in antepartum period (Acute) Coccygeal pain (Acute) since first delivery Neck pain (Acute) Sciatica (Acute) (Acute) Heart murmur (Acute) Tension headache (Acute 03/04/15) Migraine headache with aura (Acute 03/04/15) Medical History Anxiety after her first . Saw a counselor Family history of thyroid disease GERD (gastroesophageal reflux disease) Palpitations Surgical History History of esophagogastroduodenoscopy (EGD) Family History Mother Hypertension Ulcerative colitis Migraine Maternal Grandfather Parkinsons COPD (chronic obstructive pulmonary disease) Diabetes Hypertension Maternal Grandmother Rheumatoid arthritis Hypertension Thyroid disease Brother Depression Social History Smoking/Tobacco Use Status: Never Smoking risk assessment performed?: Yes Alcohol Intake: current Alcohol Intake frequency: a few times a month Alcohol type: beer and wine Drug use: Never Substance use type: does not use Details: No alcohol since the end of september, in the past may have one beer or wine cooler every week or so. Household members: spouse and other Details: during the summer. H - works on local [employer]. 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 Do you feel safe at home: Yes Do you feel safe in your relationship?: Yes Female Reproductive History Menstrual Age of Menarche: 13 control method: none History History 3 Para 1 Hx # Term Pregnancies 1 Multiple births 0 Hx # Pregnancies 0 Ectopic pregnancies 0 AB induced 0 Hx Number of Living Children 1 AB spontaneous 1 Past Pregnancies Del. Date GA/Weeks # Preg Succ Route Wgt Sex Labor Lgth Anesth esia Location [facility] 12/28/18 9 No 02/21/20 37 No vaginal Female 6 hours [place] Delivery Date: 12/28/18 Last Updated by: Mary Chow LPN 1st trimester loss, SAB, Dr. Castle Delivery Date: 02/21/20 Last Updated by: Kelsey Adler CNM IOL for PROM at 37 weeks, took only one miso, fast labor, deliv hands and knees on Tasha stinson DS: Data Vitals/I&O Vitals and I&O: Vital Signs Pulse Rhythm Regular 01/17/22 00:00 Intake & Output 01/16/22 01/16/22 01/17/22 11:59 23:59 11:59 Intake Total 450 / 450 Output Total 200 / 200 Balance 250 / 250 Intake: Oral 450 / 450 Output: Urine 200 / 200 Other: Urine Color Yellow
== END 2022-01-17 02:15 | disposition home or self-care (01) ==
PROVIDERS: Admitting Provider Advanced Practice Midwife; PCP Nurse Practitioner Family; Visit Provider Advanced Practice Midwife
DX: O47.03 False labor before 37 completed weeks of gestation, third trimester (principal); Z3A.37 37 weeks gestation of pregnancy
CPT/HCPCS: 59025; G0378

== ENCOUNTER 2022-01-22 15:42 | Outpatient (REF) | payer MEDICAID, SELFPAY ==
[2022-01-22 16:33] LABS: *AMPHETAMINES SCREEN URINE Negative (Negative); *BARBITURATES SCREEN URINE Negative (Negative); *BENZODIAZEPINES SCREEN URINE Negative (Negative); Cannabinoids THC Negative (Negative); Cocaine Screen,Urine Negative (Negative); METHADONE URINE SCREEN Negative (Negative); OPIATES URINE SCREEN Negative (Negative)
[2022-01-22 16:40] LABS: Tricyclic Antidepressants Negative (Negative)
[2022-02-03 10:56] LABS: Buprenorphine Negative ng/mL (Cutoff: 5.0); Norbuprenorphine Negative ng/mL (Cutoff: 2.5)
== END 2022-01-22 15:43 | disposition home or self-care (01) ==
LOC: NCHCN 15:42
PROVIDERS: PCP Nurse Practitioner Family; Visit Provider Advanced Practice Midwife
DX: Z34.93 Encounter for supervision of normal pregnancy, unspecified, third trimester (principal); Z36.85 Encounter for antenatal screening for Streptococcus B; Z3A.36 36 weeks gestation of pregnancy
CPT/HCPCS: 80307; 87081

== ENCOUNTER 2022-01-26 11:32 | Outpatient (CLI) | payer MEDICAID, SELFPAY ==
[2022-01-26 11:42] VITALS: BP 104/60; PULSE 73; RESP 16; TEMP 36.6
[2022-01-26 11:43] VITALS: BP 104/60; PULSE 73
[2022-01-26 11:47] VITALS: BP 104/60; PULSE 73; TEMP 36.6
[2022-01-26] MEDS: Ondansetron O.D.T. 4 MG TABEF PO (12:19)
[2022-01-26 12:20] VITALS: BP 104/60; PULSE 73; TEMP 36.6
[2022-01-26 12:33] VITALS: BP 104/60; PULSE 73; TEMP 36.6
--- NOTE | 2022-01-26 15:33 | W.OBNST ---
Date of service: 01/26/22 Time of Service: 11:50 NST Evaluation Reason for NST Reasons for Nonstress Test: DECREASED MOVEMENT Gestational Age Gestational Age in Weeks and Days: 37 Weeks and 0Days Test and Monitor Explained Test/Monitor Explained: Test Explained, Monitor Explained and Patient Verbalized Understanding Vital Signs Blood Pressure: 104/60 Pulse: 73 Temperature: 97.8 F Urine Results Urine Protein: Negative Urine Ketones: Negative Urine Glucose: Negative Urine Blood: Negative NST Information Date on Monitor: 01/26/22 Time on Monitor: 11:40 Date off Monitor: 01/26/22 Time off Monitor: 12:31 Total Time on Monitor: 51 NST Interventions: PO Hydration Contraction Frequency: 1-13 NST Evaluation Patient States Movement: Present FHR Baseline: 150 Variability: Moderate 6-25 bpm Accelerations: 15x15 Decelerations: None NST Results: Reactive Note NST Note Note: SSE performed, neg pooling, neg nitrizine, neg ferns Cvx 1-2/thick, posterior, vtx -3 UA is neg Given Zofran 4 mg ODT Discharged to home, f/up as scheduled NST Reviewed and Verified by: Sindi Wilkinson
[2022-01-26 15:34] VITALS: BP 104/60; PULSE 73; TEMP 36.6
== END 2022-01-26 12:37 | disposition home or self-care (01) ==
LOC: BCD 11:33 → OBS 11:36
PROVIDERS: PCP Nurse Practitioner Family; Visit Provider Advanced Practice Midwife
DX: O36.8130 Decreased fetal movements, third trimester, not applicable or unspecified (principal); Z3A.37 37 weeks gestation of pregnancy
CPT/HCPCS: 59025

== ENCOUNTER 2022-02-05 08:42 | Outpatient (CLI) | payer MEDICAID, SELFPAY ==
[2022-02-04 21:35] VITALS: BP 108/60; PULSE 77; TEMP 36.5
--- NOTE | 2022-02-04 21:43 | PDOC.NST_ITS ---
Date of service: 02/04/22 Time of Service: 21:43 NST Evaluation Reason for NST Reasons for Nonstress Test: FALSE LABOR Gestational Age Gestational Age in Weeks and Days: 38 Weeks and 2Days Test and Monitor Explained Test/Monitor Explained: Test Explained, Monitor Explained and Patient Verbalized Understanding Vital Signs Blood Pressure: 108/60 Pulse: 77 Temperature: 97.7 F NST Information Date on Monitor: 02/04/22 Time on Monitor: 21:15 Date off Monitor: 02/04/22 Time off Monitor: 21:40 Total Time on Monitor: 25 NST Interventions: None Contraction Frequency: irregular milkd NST Evaluation Patient States Movement: Present FHR Baseline: 135 Variability: Moderate 6-25 bpm Accelerations: 15x15 Decelerations: None NST Results: Reactive Note NST Note Note: Marta and her , William, present for assessment of irregular contractions but also nausea today with little appetite. She ate last at 4pm cereal. No fever or chills. Baby is active. No LOF or vaginal bleeding. VE 2/40/-3 posterior and medium consistency. She has a follow up appointment in office tomorrow. Given 8mg Zofran ODT here and RX sent to pharmacy to medicinal plant picker tomorrow. Reviewed importance of hydration. NIURKA NST Reviewed and Verified by: Kelsey Grayson
[2022-02-04 21:45] VITALS: BP 108/60; PULSE 77; TEMP 36.5
[2022-02-04] MEDS: Ondansetron O.D.T. 4 MG TABEF 8 MG PO (21:51)
== END 2022-02-05 08:43 | disposition home or self-care (01) ==
LOC: BCD 08:42
PROVIDERS: PCP Nurse Practitioner Family; Visit Provider Advanced Practice Midwife
DX: O47.1 False labor at or after 37 completed weeks of gestation (principal); Z3A.38 38 weeks gestation of pregnancy
CPT/HCPCS: 59025

== ENCOUNTER 2022-02-12 05:45 | Inpatient (IN) | payer MEDICAID, SELFPAY ==
[2022-02-12] VITALS (19 sets, daily range): BP systolic 92–126; BP diastolic 51–88; PULSE 67–126; RESP 17; TEMP 36.5–36.9; O2SAT 97
[2022-02-12 06:18] LABS: ROM Plus Positive
[2022-02-12 07:34] LABS: Source Nasal/Nares
[2022-02-12 07:38] LABS: HCT 33.5 % (36.0-46.0); HGB 11.6 g/dL (11.2-15.7); MCH 29.7 pg (27.0-33.0); MCHC 34.6 % (32.0-36.0); MCV 86 fL (80-95); MPV 9.7 fL (8.0-11.0); Platelet Count 214 10^3/uL (130-400); RBC 3.91 10^6/uL (3.93-5.22); RDW 13.4 % (11.7-14.6); RDW-SD 41.6 fL; WBC 14.44 10^3/uL (4.4-10.8)
--- NOTE | 2022-02-12 07:43 | W.PM.OBHPL1 ---
Date of service: 02/12/22 Time of Service: 07:43 Assessment and Plan Assessment and plan (1) Spontaneous onset of labor: Status: Acute Assessment and plan: Admit to Center. Comfort measures. Covid- 19 test. Marta requests to use the tub. Anticipate . OB-HPI Labor/Delivery History of Present Illness Reason for Visit: Labor and SROM Chief Complaint: Uterine Contractions; Suspected Rupture of Membranes , Associated Signs and Symptoms of Suspected ROM: none. DESHAUN Calculator Estimated Delivery Date Method Current WG Current Estimate 02/16/22 LMP (Certain) 39w 3d Other Estimates 02/15/22 Ultrasound #1 39w 4d Comments: Marta reported leaking small amounts of blood tinged fluid at 0430. She comes in for rule out ROM. History of Present Expected Delivery Route/Plan - CNM FOB/ - William Martínez (2nd child together) Lou Would like to have a waterbirth GBS negative Specific Issues/Plan 1. Migraines in the past- not during . 2. GERD - no symptoms currently after stopping NSAIDS 3. palpitations and heart murmur in the past- cardiac workup neg in the past. Avoids caffeine 4. Fam Hx heart defect - FOB's uncle and brother - Level II US offered- [facility] 5. Genetic testing options reviewed - Panorama and CF drawn. Declines AFP single marker screen. 5a. CF neg. Panorama result is low risk, female fetus. 6. Rh neg - Rhogam @ 28 wks, done 11/24/21 7. /latching difficulty with first baby- visit declined 01/22/22 8. Amilcar are covid vaccinated, haven't received booster 9. Sciatica, neck pain and tailbone pain after 1st - referred to [facility]. 10. heartburn - Taking TUMS and milk for relief. 11. vaginal discharge and contractions - treated for BV, wet prep pos/ vag pathogen screen neg. PFSH All Active Problems (Updated 02/12/22 @ 07:47 by Kelsey Adler CNM) Spontaneous onset of labor (Acute) Rh negative state in antepartum period (Acute) Coccygeal pain (Acute) since first delivery Neck pain (Acute) Sciatica (Acute) (Acute) Heart murmur (Acute) Tension headache (Acute 03/04/15) Migraine headache with aura (Acute 03/04/15) Medical History Anxiety after her first . Saw a counselor Family history of thyroid disease GERD (gastroesophageal reflux disease) Palpitations Surgical History History of esophagogastroduodenoscopy (EGD) Family History Mother Hypertension Ulcerative colitis Migraine Maternal Grandfather Parkinsons COPD (chronic obstructive pulmonary disease) Diabetes Hypertension Maternal Grandmother Rheumatoid arthritis Hypertension Thyroid disease Brother Depression Social History Smoking/Tobacco Use Status: Never Smoking risk assessment performed?: Yes Alcohol Intake: current Alcohol Intake frequency: a few times a month Alcohol type: beer and wine Drug use: Never Substance use type: does not use Details: No alcohol since the end of september, in the past may have one beer or wine cooler every week or so. Household members: spouse and other Details: during the summer. H -works on local [employer]. 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 Do you feel safe at home: Yes Do you feel safe in your relationship?: Yes Female Reproductive History Menstrual Age of Menarche: 13 control method: none History History 3 Para 1 Hx # Term Pregnancies 1 Multiple births 0 Hx # Pregnancies 0 Ectopic pregnancies 0 AB induced 0 Hx Number of Living Children 1 AB spontaneous 1 Past Pregnancies Del. Date GA/Weeks # Preg Succ Route Wgt Sex Labor Lgth Anesthesia Location Prov Complic 12/28/18 9 No 02/21/20 37 No vaginal Female 6 hours Kelsey Delivery Date: 12/28/18 Last Updated by: Mary Chow LPN 1st trimester loss, SAB, Dr. Castle Delivery Date: 02/21/20 Last Updated by: Kelsey Adler CNM IOL for PROM at 37 weeks, took only one miso, fast labor, deliv hands and knees on ball, Tasha Meds Allergies and Home Medications Allergies Allergy/AdvReac Type Severity Reaction Status Date / Time azithromycin Allergy Mild RASH Verified 02/11/22 09:16 naproxen AdvReac Intermediate Nausea Verified 02/11/22 09:16 PEDIZOL Allergy Intermediate I have Uncoded 01/29/22 15:10 trouble breathing Home Medications Medication Instructions Recorded Confirmed Type acetaminophen 500 mg tablet 1,000 mg PO Q6H PRN migraine 12/08/18 02/11/22 History (Tylenol Extra Strength) headache prenat.vits,asaf,[id number] 1 tab PO DAILY 12/26/18 02/11/22 History ondansetron 8 mg disintegrating 8 mg PO Q8H PRN nausea and 02/04/22 02/11/22 Rx tablet vomiting #30 tabs amoxicillin 500 mg capsule 500 mg PO Q8H 7 days #21 caps 02/07/22 02/11/22 Rx Exam Physical Exam Vital signs: Temp Pulse Resp BP 97.7 F 80 17 108/57 L 02/12/22 06:10 02/12/22 06:10 02/12/22 06:10 02/12/22 06:10 Detailed Labor and Delivery Exam Dilation: 6 Effacement (%): 100 station: -1 Cervix position: posterior Consistency: soft Calderon Score: Cervical Points Exam 0 1 2 3 Dilation Closed 1-2cm 3-4 cm 5-6cm Effacement 0-30% 40-50% 60-70% 80% Consistency Firm Medium Soft Station -3 -2 -1,0 +1,+2 Position Posterior Mid Anterior Amniotic Membrane Status: Ruptured Monitor Mode: External Contraction Frequency(min): 3-4 Contraction Duration(sec): 60 Contraction Intensity: Moderate/Strong Fetus A Heart Rate Baseline: 140 Monitor Accelerations: 15 X 15 Monitor Decelerations: None Variability: Moderate (6-25 BPM) Categories: Category I Est. Weight: 7 lb Date of Membrane Rupture: 02/12/22 Time of Membrane Rupture: 01:30 Results Results Group Beta Strep: Negative Blood Type: O- Rubella Status: Immune Varicella Immunity: Immune Abnormal Lab Findings: Abnormal Labs 02/12/22 07:20 WBC 14.44 H RBC 3.91 L Hct 33.5 L Risk Assessment Risk for Shoulder Dystocia Historical/Initial OB: NEGATIVE FOR: Pelvic Abnormality, Pre- BMI>30, Previous Shoulder Dystocia or Previous Macrosomia Delivery Plan @ 36wks: Delivery Plan @ 40 wks: Risk for Pre-Eclampsia Date Initiated/Initials: not indicated Yes, if one or more: NEGATIVE FOR: Hx Pre-E/Gest HTN, Chronic HTN, Multiple Gestation, Pre-gestational DM, Renal Disease, Systemic Lupus or APA Syndrome Yes, if 2 or more: NEGATIVE FOR: Nulliparity, Age>= 35 yrs, >10yr btwn pregnancies, BMI>30, ethinicty, Mother/Sister w/ Pre-E or Previous IUGR Risk for Post- Hemorrhage Initial: NEGATIVE FOR: Multiple Gestation, Previous PPH, Known Clotting Deficiency, Grand Multiparity or Anticoagulation At Risk?: No Risks Reviewed Risks Reviewed Upon Admission: Yes
[2022-02-12] MEDS: Oxytocin 10 UNITS/ML VIAL IM (08:20)
[2022-02-12 08:28] LABS: COVID-19 PCR Negative (Negative)
[2022-02-12] MEDS: miSOPROStol 200 MCG TAB 400 MCG SL (09:50)
--- NOTE | 2022-02-12 10:30 | OBVDS_ITS ---
Date of service: 02/12/22 Time of Service: 10:30 OB Labor/ Delivery Information Baby A Delivery Delivery Method: Spontaneaous Presentation: Vertex Cephalic Position: Vertex Vertex Position: Right Occipital Transverse Amniotic Fluid: Clear Estimated Blood Loss: 200 Delivery Outcome: Liveborn Transferred: Remains with Mother Note: FHTs 130s during first stage of labor. FHTs 120s in second stage. Marta used the tub for comfort. She began experiencing rectal pressure in the tub and requested to get out. She moved to hands and knees in the bed and began bearing down. The cervix was 9 cms at that time and was easily reduced with bearing down efforts and Marta began pushing. Second stage huddle was done. Spontaneous delivery of female delivered in transverse position. A tight nuchal cord was noted and the baby was delivered using a somersault technique. The Baby was placed on mother's abdomen and dried and stimulated. Spontaneous cry. Cord was clamped and cut by the baby's father. The placenta delivered spontaneously and appears to by intact with a three vessel cord. Pitocin 10 units IM was administered after delivery of the placenta. The perineum was inspected and it is intact. The baby did breastfeed. After delivery, Mother and baby and father of the baby were stable and bonding well in the delivery room and there were no complications. Providers Nurse Apron Operator: Kelsey Adler Nurse: Carmen Mahoney Nurse: Reynaldo You Labor/Delivery Information Number of Babies in Womb: 1 Steroids Given: None Reason Steroids Not Administered: N/A Group Beta Strep: Negative Antibiotics Administered: No Rubella Status: Immune Blood Type: O- Varicella Immunity: Immune Medication in Delivery: none Shoulder Dystocia: No Stages of Labor Onset of Labor Date: 02/12/22 Onset of Labor Time: 01:30 Complete Dilatation Date: 02/12/22 Complete Dilatation Time: 08:13 Labor - Stage 1 Duration: 0 minutes ROM Baby A: 02/12/22 ROM Baby A: 01:30 ROM Total Time- Baby A: [id number] Delivery Date-Baby A: 02/12/22 Infant Delivery Time-Baby A: 08:17 Labor Stage 2 Duration: 4 minutes Placenta Delivery Date-Baby A: 02/12/22 Placenta Delivery Time-Baby A: 08:21 Labor-Stage 3 Duration: 4 minutes Total Length of Labor-Baby A: 6 hours and 47 minutes Placenta Status: Delivered Baby A Gender: Female Gestational Status: Term (39-41.6 wks) Gestational Age in Weeks/Days: 39 Weeks and 3 Days Score-1 Minute Interval(Baby A) Heart Rate-1 minute: 100 BPM or Greater Respiratory Effort- 1 minute: Spontaneous/Strong Cry Muscle Tone-1 minute: Active Movement Reflex Response-1 minute: Prompt Response Color-1 minute: Pallor or Cyanosis Total Score-1 minute: 8 Score-5 Minute Interval(Baby A) Heart Rate- 5 minute: 100 BPM or Greater Respiratory Effort-5 minute: Spontaneous/Strong Cry Muscle Tone-5 minute: Active Movement Reflex Response-5 minute: Prompt Response Color-5 minute: Bluish Hands or Feet Total Score- 5 minute: 9
--- NOTE | 2022-02-12 10:35 | W.PM.OBNL1 ---
Date of service: 02/12/22 Time of Service: 10:35 Assessment and Plan Assessment and plan (1) cramps: Status: Acute Assessment and plan: Will continue to assess symptoms and blood loss. I discussed starting an IV with Marta if her symptoms did not improve. Will order post H and H tomorrow morning. Will administer ibuprofen for relief of cramping. Objective Abnormal lab results 02/12/22 Range/Units 07: WBC 14.44 H (4.4-10.8) 10^3/uL RBC 3.91 L (3.93-5.22) 10^6/uL Hct 33.5 L (36.0-46.0) % Temp Pulse Resp BP 97.7 F 81 17 92/54 L 02/12/22 07:39 02/12/22 10:25 02/12/22 07:39 02/12/22 10:25 Laboratory Results WBC 14.44 10^3/uL (4.4-10.8) H 02/12/22 07:20 RBC 3.91 10^6/uL (3.93-5.22) L 02/12/22 07:20 Hgb 11.6 g/dL (11.2-15.7) 02/12/22 07:20 Hct 33.5 % (36.0-46.0) L 02/12/22 07:20 MCV 86 fL (80-95) 02/12/22 07:20 MCH 29.7 pg (27.0-33.0) 02/12/22 07:20 MCHC 34.6 % (32.0-36.0) 02/12/22 07:20 RDW 13.4 % (11.7-14.6) 02/12/22 07:20 Plt Count 214 10^3/uL (130-400) 02/12/22 07:20 MPV 9.7 fL (8.0-11.0) 02/12/22 07:20 Membranes Rupture Positive 02/12/22 06:00 COVID-19 Source Nasal/Nares 02/12/22 07:10 SARS-CoV-2 (PCR) Negative (Negative) 02/12/22 07:10 Patient ABO/Rh O Negative 02/12/22 07:20 Antibody Screen POSITIVE 02/12/22 07:20 Antibody Identification Anti-D 02/12/22 07:20 Subjective Interval history since last seen: I was called to Marta's bedside 1.5 hours after delivery because Marta was experiencing nausea and feeling severe cramping. The head of her bed was put down and she reported an improvement of her symptoms. Her uterus was assessed and was down 3 FB from umbilicus but slightly boggy and a full bladder was suspected. Cytotec 400 mcg was administered orally. She was straight catheterized for 200 cc clear urine. The uterus was noted to be firmer after catheterization. The chux which was placed after delivery was weighed and weighs 255 cc for a total of 450cc. At 1020, she again was experiencing cramping but denies nausea. Bleeding was light at that time. She was encouraged to rest with her bed flat and she turned on her side and began finishing her breakfast and orange juice. BP remains 90s/50s and pulse is 75. Results Hemoglobin/Hematocrit: Hgb 11.6 g/dL (11.2-15.7) 02/12/22 07:20 Hct 33.5 % (36.0-46.0) L 02/12/22 07:20 Abnormal Lab Findings: Abnormal Labs 02/12/22 07:20 WBC 14.44 H RBC 3.91 L Hct 33.5 L
[2022-02-12] MEDS: Acetaminophen 325 MG TAB 650 MG PO (11:06)
[2022-02-12] MEDS: Ibuprofen 600 MG TAB PO (11:07)
[2022-02-12] MEDS: Hamamelis Leaf/Glycerin 100 EACH BOX PR (11:07)
[2022-02-12] MEDS: Dibucaine 1% 28 GM TUBE TP (11:08)
[2022-02-12] MEDS: Docusate Sodium 100 MG CAP PO (20:03)
[2022-02-12] MEDS: Amoxicillin 500 MG CAP PO (20:03)
[2022-02-13] MEDS: Acetaminophen 325 MG TAB 650 MG PO ×2 (00:37→14:48)
[2022-02-13 06:54] LABS: HCT 32.9 % (36.0-46.0); HGB 11.2 g/dL (11.2-15.7); MCH 29.2 pg (27.0-33.0); MCV 86 fL (80-95); MPV 9.5 fL (8.0-11.0); Platelet Count 174 10^3/uL (130-400); RBC 3.83 10^6/uL (3.93-5.22); RDW 13.4 % (11.7-14.6); RDW-SD 41.3 fL; WBC 12.54 10^3/uL (4.4-10.8)
[2022-02-13 07:30] VITALS: BP 109/67; PULSE 64; RESP 16; TEMP 36.5; O2SAT 98
[2022-02-13] MEDS: Docusate Sodium 100 MG CAP PO (08:29)
[2022-02-13] MEDS: Amoxicillin 500 MG CAP PO ×2 (08:29→14:47)
--- NOTE | 2022-02-13 10:06 | OBPPV_ITS ---
Date of service: 02/13/22 Time of Service: 10:06 Assessment and Plan Assessment and plan (1) Term delivered: Status: Acute Assessment and plan: A: Nml PPD#1 well Satisfied with experience P: Discharge to home when baby is released F/up at 2 & 6 wks RhoGam given Written instructions reviewed and given to pt Plans POP's for BCM, to start @ 4 wks (2) Care and examination of lactating mother: Status: Acute Subjective Subjective Patient comments: No complaints, Pain well controlled, Tolerating diet and Bowel Movement Patient's Mood: happy Sargeant baby status: Doing well, Nursing well, Rooming in and Strong Bonding Observed Sargeant feeding status: Exclusively breast feeding Exam Physical Exam Vital signs: Temp Pulse Resp BP Pulse Ox 97.7 F 64 16 109/67 98 02/13/22 07:30 02/13/22 07:30 02/13/22 07:30 02/13/22 07:30 02/13/22 07:30 Vital Signs Reviewed: Yes Constitutional Constitutional: no acute distress and average body habitus HEENT Exam HEENT Exam: Normal Neck Exam Neck Exam: Normal Breast Exam Bilateral: Breast Exam: Normal and Soft Nipple Exam: Normal and Uninjured Respiratory Exam Respiratory Exam: Normal Cardiovascular Exam Cardiovascular Exam: Normal Abdominal Exam Abdomen: Other (soft, nontender) Fundal Exam Fundus: Below Umbilicus and Firm Rectal Exam Rectal Exam: Normal Exam Perineum: Intact and Normal Extremities Exam Extremity Exam: Normal, Full ROM and Warm to Touch Back/Spine/Pelvis Exam Back Exam: Normal Skin Exam Skin Exam: Normal Neurological Exam Neurological Exam: Normal Psychiatric Exam Psychiatric Exam: Normal Results Hemoglobin/Hematocrit: Hgb 11.2 g/dL (11.2-15.7) 02/13/22 06:45 Hct 32.9 % (36.0-46.0) L 02/13/22 06:45
--- NOTE | 2022-02-13 10:16 | DSE_ITS ---
Date of service: 02/13/22 Time of Service: 10:16 DS: Diagnosis Discharge Diagnosis (1) Term delivered: Status: Acute (2) Care and examination of lactating mother: Status: Acute Discharge Plan Disposition Patient Disposition: HOME Condition: Good Discharge Details Reason For Visit: Labor and SROM Admit Date/Time: 02/12/22 06:18 Admit Provider: Kelsey Adler Attending Provider: Kelsey Adler Primary Care Provider: Caroline Mccallum Hospital Course Hospital Course: , nml course. Home Meds and New Rx's Prescriptions: No Action acetaminophen [Tylenol Extra Strength] 500 mg tablet 1,000 mg PO Q6H PRN (Reason: migraine headache) Label Comments: PRN prenat.vits,asaf,har-[id number]-[id number] tablet 1 tab PO DAILY Discharge Instructions Additional Instructions: You will receive a call from the office with your 2 & 6 wk center mgr appointments on Tuesday. Please call for any concerns or questions. Stand Alone Forms: BC Instructions, BC Post Vaginal Deliver Activity:: Activity as Tolerated Equipment/Supplies:: No Equipment Needed Diet:: Normal Diet Discharge Orders Discharge Orders: Discharge Order (Routine); Ordered 02/13/22 Ordered By: Sindi Wilkinson OB:DS Summary Summary Vaginal Delivery Method: Spontaneaous Contraception Discussed Contraception Discussed: Yes Contraceptive Plan: Control Pill/Patch, [place] Gender-Baby A: Female weight: 7 lb 4.933 oz Status at Discharge Functional status at discharge: independent ambulation Overall status at discharge: patient is progressing back to baseline Mental Status: mental status grossly normal Speech and Movement: speech and movement normal and speech clear Mood: congruent mood Affect: normal affect Exam Physical Exam Vital signs: Temp Pulse Resp BP Pulse Ox 97.7 F 64 16 109/67 98 02/13/22 07:30 02/13/22 07:30 02/13/22 07:30 02/13/22 07:30 02/13/22 07:30 Vital Signs Reviewed: Yes Constitutional Constitutional: no acute distress and average body habitus HEENT Exam HEENT Exam: Normal Neck Exam Neck Exam: Normal Breast Exam Bilateral: Breast Exam: Normal and Soft Respiratory Exam Respiratory Exam: Normal Cardiovascular Exam Cardiovascular Exam: Normal Abdominal Exam Abdomen: Other (soft, nontender) Fundal Exam Fundus: Below Umbilicus and Firm Rectal Exam Rectal Exam: Normal Exam Perineum: Intact and Normal Extremities Exam Extremity Exam: Normal, Full ROM and Warm to Touch Back/Spine/Pelvis Exam Back Exam: Normal Skin Exam Skin Exam: Normal Neurological Exam Neurological Exam: Normal Psychiatric Exam Psychiatric Exam: Normal PFSH All Active Problems (Updated 02/13/22 @ 10:14 by Sindi Wilkinson) Care and examination of lactating mother (Acute) Term delivered (Acute) Medical History (Updated 02/13/22 @ 10:14 by Sindi Wilkinson) Anxiety after her first . Saw a counselor Coccygeal pain since first delivery Family history of thyroid disease GERD (gastroesophageal reflux disease) Heart murmur Migraine headache with aura (03/04/15) Neck pain Palpitations cramps Rh negative state in antepartum period Sciatica Spontaneous onset of labor Tension headache (03/04/15) Surgical History History of esophagogastroduodenoscopy (EGD) Family History Mother Hypertension Ulcerative colitis Migraine Maternal Grandfather Parkinsons COPD (chronic obstructive pulmonary disease) Diabetes Hypertension Maternal Grandmother Rheumatoid arthritis Hypertension Thyroid disease Brother Depression Social History Smoking/Tobacco Use Status: Never Smoking risk assessment performed?: Yes Alcohol Intake: current Alcohol Intake frequency: a few times a month Alcohol type: beer and wine Drug use: Never Substance use type: does not use Details: No alcohol since the end of september, in the past may have one beer or wine cooler every week or so. Household members: spouse and other Details: during the summer. H - works on local [employer] 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 Do you feel safe at home: Yes Do you feel safe in your relationship?: Yes Female Reproductive History Menstrual Age of Menarche: 13 control method: none History History 3 Para 1 Hx # Term Pregnancies 1 Multiple births 0 Hx # Pregnancies 0 Ectopic pregnancies 0 AB induced 0 Hx Number of Living Children 1 AB spontaneous 1 Past Pregnancies Del. Date GA/Weeks # Preg Succ Route Wgt Sex Labor Lgth Anesth esia Location Prov Complic 12/28/18 9 No 02/21/20 37 No vaginal Female 6 hours [place] [facility] Delivery Date: 12/28/18 Last Updated by: Mary Chow LPN 1st trimester loss, SAB, Dr. Castle Delivery Date: 02/21/20 Last Updated by: Kelsey Adler CNM IOL for PROM at 37 weeks, took only one miso, fast labor, deliv hands and knees on Tasha stinson DS: Data Vitals/I&O Vitals and I&O: Vital Signs Temperature 97.7 F 02/13/22 07:30 Pulse 64 02/13/22 07:30 Pulse Rhythm Regular 02/13/22 07:30 Respiratory Rate 16 02/13/22 07:30 Respiratory Depth Normal 02/12/22 08:00 Blood Pressure 109/67 02/13/22 07:30 Blood Pressure Mean 81 02/13/22 07:30 Pulse Oximetry 98 02/13/22 07:30 Oxygen Delivery Method Room Air 02/12/22 07:39 Oxygen Flow Rate 0 02/12/22 07:39 Pain Level 0 02/13/22 01:37 Intake & Output 02/12/22 02/12/22 02/13/22 11:59 23:59 11:59 Output Total 605 / 1355 750 / 1355 Balance -605 / -1355 -750 / -1355 Weight 154 lb Output: Urine 200 / 950 750 / 950 Emesis 150 / 150 Blood 255 / 255 Other: Urine Color Pale Pale Yellow Yellow Urine Appearance Clear Data Completed and Pending Labs on day of discharge: Labs from last 24 hours 02/13/22 02/12/22 02/12/22 06:45 15:15 07:20 WBC 12.54 H RBC 3.83 L Hgb 11.2 Hct 32.9 L MCV 86 MCH 29.2 MCHC 34.0 RDW 13.4 Plt Count 174 MPV 9.5 Screen Negative Rhogam Unit Number [id number] Unit Expiration Date 10/15/2023 Product Lot # [id number]
== END 2022-02-13 17:45 | disposition home or self-care (01) | DRG 806 ==
PROVIDERS: Admitting Provider Advanced Practice Midwife; PCP Nurse Practitioner Family; Visit Provider Advanced Practice Midwife
DX: O36.0930 Maternal care for other rhesus isoimmunization, third trimester, not applicable or unspecified (principal); O99.354 Diseases of the nervous system complicating childbirth; Z37.0 Single live birth; G43.909 Migraine, unspecified, not intractable, without status migrainosus; O99.62 Diseases of the digestive system complicating childbirth; O69.1XX0 Labor and delivery complicated by cord around neck, with compression, not applicable or unspecified; Z3A.39 39 weeks gestation of pregnancy; K21.9 Gastro-esophageal reflux disease without esophagitis; Z20.822 Contact with and (suspected) exposure to COVID-19
CPT/HCPCS: 36415; 84112; 85027; 85461; 86850; 86900; 86901; 87635; 90384; 86870; J2590; J2790

== ENCOUNTER 2022-03-22 21:28 | Emergency (ER) | payer MEDICAID, SELFPAY ==
[2022-03-22 21:46] VITALS: BP 99/63; PULSE 70; RESP 16; TEMP 36; O2SAT 96
--- NOTE | 2022-03-22 22:00 | ED.GENADUL_ITS ---
Discharge Plan Disposition Patient Disposition: HOME Condition: Stable Discharge Details Clinical Impression: Dental infection Primary Care Provider: Caroline Mccallum ED Provider: Alcon Yadav Home Meds and New Rx's Prescriptions: New amoxicillin 875 mg tablet 875 mg PO BID Qty: 20 0RF Continued acetaminophen [Tylenol Extra Strength] 500 mg tablet 1,000 mg PO Q6H PRN (Reason: migraine headache) Label Comments: PRN norethindrone (contraceptive) [Lizet] 0.35 mg tablet 0.35 mg PO DAILY Qty: 84 4RF Discharge Instructions Instructions: Dental Abscess (ED) Additional Instructions: Amoxicillin as directed. Cool and/or warm compresses every 2 hours for 20 minutes. [id number] Tylenol and/or Motrin as directed for discomfort. Salt water swish and spit as tolerated. Please watch for new or worsening symptoms and return to the ER for any concerns. Please follow-up with your dentist on Tuesday as already scheduled. Medical Decision Making 26-year-old female presenting with a dental infection over the past 6 days, Tylenol was initially working but now increased pain and mild swelling, concerned that she may need an antibiotic. She is scheduled to be seen by her dentist on Tuesday. Declines nerve block. We will provide first dose of amoxicillin now and provide a prescription. We discussed additional conservative measures such as Tylenol, Motrin, compresses, salt water swish and spit, etc. Standard discharge and return precautions were provided. Patient understands, is agreeable to this plan, and has no additional questions or concerns upon discharge. This documentation was generated using [employer] dictation system, please disregard any oddities of phrase or misspellings. Medical Records Medical records reviewed: Yes I reviewed the patient's medical records. HPI General Mode of arrival: ambulatory . Date/Time Provider Initiated Documentation: 03/22/22 21:41 . Limitations to Documentation: no limitations . Information obtained by: patient . History of Present Illness 26 year old F presents to the emergency department with the chief complaint of dental infection, described as moderate, with intensity rated at 7. Quality is described as aching, and is localized to the mouth. Patient reports no radiation. Patient started experiencing this day(s) (6) and it has been constant. No relieving factors improve symptom(s), No exacerbating factors reported . Patient notes no other symptoms.. Patient did receive the following treatments prior to arrival, other (tylenol) Related Data Home Medications Medication Instructions Recorded Confirmed acetaminophen 500 mg tablet 1,000 mg PO Q6H PRN migraine 12/08/18 03/22/22 (Tylenol Extra Strength) headache norethindrone (contraceptive) 0.35 0.35 mg PO DAILY #84 tabs 02/26/22 03/22/22 mg tablet (Lizet) amoxicillin 875 mg tablet 875 mg PO BID #20 tabs 03/22/22 Previous Rx's Medication Instructions Recorded norethindrone (contraceptive) 0.35 0.35 mg PO DAILY #84 tabs 02/26/22 mg tablet (Lizet) amoxicillin 875 mg tablet 875 mg PO BID #20 tabs 03/22/22 Allergies Allergy/AdvReac Type Severity Reaction Status Date / Time azithromycin Allergy Mild RASH Verified 03/22/22 21:48 naproxen AdvReac Intermediate Nausea Verified 03/22/22 21:48 PEDIZOL Allergy Intermediate I have Uncoded 03/22/22 21:48 trouble breathing General Stated Complaint: DentalOral SARAH: 4 Review of Systems Constitutional Constitutional: Denies fever(s) and Denies headache(s) ENT Ears, Nose, Mouth, and Throat: Denies otalgia, Denies headache(s), Denies neck pain and Denies sore throat Musculoskeletal Musculoskeletal: Denies neck pain Integumentary/Breasts Skin/Breast: Denies erythema Neurologic Neurologic: Denies headache(s) PFSH All Active Problems (Updated 03/22/22 @ 22:04 by HOPE Ty) Dental infection (Acute) Migraine headache with aura (Acute 03/04/15) Care and examination of lactating mother (Acute) Term delivered (Acute) Medical History Anxiety after her first . Saw a counselor Coccygeal pain since first delivery Family history of thyroid disease GERD (gastroesophageal reflux disease) Heart murmur Neck pain Palpitations cramps Rh negative state in antepartum period Sciatica Spontaneous onset of labor Tension headache (03/04/15) Surgical History History of esophagogastroduodenoscopy (EGD) Family History Mother Hypertension Ulcerative colitis Migraine Maternal Grandfather Parkinsons COPD (chronic obstructive pulmonary disease) Diabetes Hypertension Maternal Grandmother Rheumatoid arthritis Hypertension Thyroid disease Brother Depression Social History Smoking/Tobacco Use Status: Never Smoking risk assessment performed?: Yes Alcohol Intake: current Alcohol Intake frequency: a few times a month Alcohol type: beer and wine Drug use: Never Substance use type: does not use Details: No alcohol since the end of september, in the past may have one beer or wine cooler every week or so. Household members: spouse and other Details: during the summer. H - works on local [employer]. 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 Do you feel safe at home: Yes Do you feel safe in your relationship?: Yes Female Reproductive History Menstrual Age of Menarche: 13 control method: none History History 3 Para 2 Hx # Term Pregnancies 2 Multiple births 0 Hx # Pregnancies 0 Ectopic pregnancies 0 AB induced 0 Hx Number of Living Children 2 AB spontaneous 1 Past Pregnancies Del. Date GA/Weeks # Preg Succ Route Wgt Sex Labor Lgth Anesth esia Location [facility] 12/28/18 9 No 02/21/20 37 No vaginal Female 6 hours [place] 02/12/22 39 No Yes vaginal 3314.059 g Female 6hrs 47 min [place]USH[facility] Reynoso Delivery Date: 12/28/18 Last Updated by: Mary Chow LPN 1st trimester loss, SAB, Dr. Castle Delivery Date: 02/21/20 Last Updated by: Kelsey Adler CNM IOL for PROM at 37 weeks, took only one miso, fast labor, deliv hands and knees on sh[place]ell[place]asha Delivery Date: 02/12/22 Last Updated by: FLORENCIA Villaseñor Exam Const General: cooperative, healthy appearing, comfortable and no acute distress Orientation: alert and awake HENMT Head: normal to inspection, normocephalic and atraumatic Ears: external ears normal, TM's normal bilaterally and EAC's normal Nose image: 1. Mild tenderness. No swelling, erythema, warmth, pointing abscess, induration or fluctuance Mouth: oral mucosae normal and moist mucous membranes Teeth image: 1. Tenderness. No fracture. No swelling, erythema, signs of pointing abscess or drainage. Throat: posterior oropharynx normal Other: Airway patent. No trismus Eyes General: appearance normal, both eyes and all related structures Conjunctivae: conjunctivae normal Neck Neck: normal visual inspection, full ROM, no meningeal signs, trachea midline and supple Resp Effort & Inspection: normal respiratory effort and able to speak in complete sentences Skin General skin exam: no rashes or lesions noted Neuro General: patient alert, patient awake, moves all extremities and no focal motor deficits Sensory Exam: no sensory deficits noted Psych Appearance: grossly normal Mental Status: mental status grossly normal Course Vital Signs Vital signs: Vital Signs Temperature 36.0 C L 03/22/22 21:46 Pulse 70 03/22/22 21:46 Respiratory Rate 16 03/22/22 21:46 Blood Pressure 99/63 L 03/22/22 21:46 Pulse Oximetry 96 03/22/22 21:46 Temperature 36.0 C L 03/22/22 21:46 Temperature Source Temporal Artery Scan 03/22/22 21:46 Pulse 70 03/22/22 21:46 Respiratory Rate 16 03/22/22 21:46 Respiratory Effort 03/22/22 21:46 Blood Pressure 99/63 L 03/22/22 21:46 Blood Pressure Position Sitting 03/22/22 21:46 Pulse Oximetry 96 03/22/22 21:46 Oxygen Delivery Method Room Air 03/22/22 21:46 Oxygen Flow Rate 0 03/22/22 21:46 Pain Level 8 03/22/22 21:46
[2022-03-22] MEDS: Amoxicillin 875 MG TAB PO (22:14)
== END 2022-03-22 22:10 | disposition home or self-care (01) ==
PROVIDERS: Emergency Provider Physician Assistant; PCP Nurse Practitioner Family
DX: K04.7 Periapical abscess without sinus (principal)
CPT/HCPCS: 99283; 99284

== ENCOUNTER 2022-04-20 13:25 | Outpatient (REF) | payer MEDICAID, SELFPAY ==
[2022-04-20 16:59] LABS: Bilirubin Negative (Negative); Blood Trace-intact (Negative); Clarity Sl Cloudy (Clear); Glucose Negative (Negative); Ketones Negative (Negative); Leukocyte Esterase Negative (Negative); Nitrite Negative (Negative); Urobilinogen 0.2 EU/dL (Up TO 0.2)
[2022-04-20 17:17] LABS: Bacteria Few HPF (Negative); C & S Indicated? No/Sq. Contamination; Crystals Negative HPF (Negative); Epithelial Cells Many HPF (Negative); Mucus Negative (Negative); RBC 0-2 HPF (0-2); WBC >50 HPF (0-5)
== END 2022-04-20 13:26 | disposition home or self-care (01) ==
LOC: NCHCN 13:25
PROVIDERS: PCP Nurse Practitioner Family; Visit Provider Nurse Practitioner Family
DX: R31.9 Hematuria, unspecified (principal); Z13.220 Encounter for screening for lipoid disorders; Z13.0 Encounter for screening for diseases of the blood and blood-forming organs and certain disorders involving the immune mechanism; Z13.228 Encounter for screening for other metabolic disorders
CPT/HCPCS: 81003; 81015

== ENCOUNTER 2023-03-07 18:18 | Outpatient (REF) | payer MEDICAID, SELFPAY ==
[2023-03-07 19:19] LABS: HGB 13.1 g/dL (11.2-15.7); MCH 29.4 pg (27.0-33.0); MCHC 35.4 % (32.0-36.0); MCV 83 fL (80-95); MPV 10.1 fL (8.0-11.0); Platelet Count 313 10^3/uL (130-400); RBC 4.46 10^6/uL (3.93-5.22); RDW 12.2 % (11.7-14.6); WBC 8.12 10^3/uL (4.4-10.8)
[2023-03-07 19:41] LABS: FREE T4 0.97 ng/dL (0.76-1.46); TSH 1.38 uIU/mL (0.36-3.74)
[2023-03-08 19:44] LABS: LH 15.4 mIU/mL (See Note)
== END 2023-03-07 18:19 | disposition home or self-care (01) ==
LOC: NCHCN 18:18
PROVIDERS: PCP Nurse Practitioner Family; Visit Provider Physician Assistant
DX: R53.83 Other fatigue (principal); R35.0 Frequency of micturition; N39.0 Urinary tract infection, site not specified; B96.4 Proteus (mirabilis) (morganii) as the cause of diseases classified elsewhere
CPT/HCPCS: 85027; 87077; 83002; 84439; 84443; 87086; 87186

== ENCOUNTER 2024-05-16 02:20 | Outpatient (CLI) | payer MEDICAID, SELFPAY ==
--- NOTE | 2024-05-16 06:45 | DI.US_ITS ---
Exam(s) US OB 1ST TRIMESTER EXAM: US OB 1ST TRIMESTER CLINICAL HISTORY: dating and viability,z34.90. TECHNIQUE: First trimester obstetrical ultrasound was performed. COMPARISON: US US OB 2-3 TRIMESTER from 09/25/2021 FINDINGS: There is an intrauterine gestational sac which contains a 6 mm diameter yolk sac and viable tomasz e which exhibits heart rate of 116 bpm. [place]-rump length measurement is 4.1 mm, corresponding to 6 weeks and 1 day gestational age. There is no evidence of obvious subchorionic hemorrhage. Maternal ovaries: Left ovary measures 3.4 x 2.5 x 2.5 cm and contains a corpus luteal cyst. Right ovary is not identified There is a trace of free fluid in the endocervical canal. IMPRESSION:: Single viable intrauterine gestation which is approximately 6 weeks and 1 day gestation al age by crown rump length measurement, implying DESHAUN of 01/08/2025, There is no evidence of subchorionic hemorrhage. DATA REPOSITORY:
== END 2024-05-16 02:40 ==
LOC: DI 02:20
PROVIDERS: Visit Provider Advanced Practice Midwife
DX: Z34.91 Encounter for supervision of normal pregnancy, unspecified, first trimester (principal); Z3A.01 Less than 8 weeks gestation of pregnancy
CPT/HCPCS: 76801

== ENCOUNTER 2024-06-27 02:15 | Outpatient (CLI) | payer MEDICAID, SELFPAY ==
[2024-06-27 09:58] LABS: Panorama Kit Sent via Fed Ex
[2024-06-27 10:04] LABS: Abs Immature Grans 0.03 10^3/uL (0.0-0.06); Absolute Basophil Count 0.03 10^3/uL (0.0-0.2); Absolute Eosinophil Count 0.16 10^3/uL (0.0-0.7); Absolute Lymphocyte Count 2.01 10^3/uL (1.2-3.4); Absolute Monocyte Count 0.54 10^3/uL (0.1-0.8); Absolute Neutrophil Count 6.05 10^3/uL (1.2-6.7); Basophils % 0.3 %; Eosinophils % 1.8 %; HCT 36.2 % (36.0-46.0); HGB 12.6 g/dL (11.2-15.7); Immature Grans % 0.3 %; Lymphocytes % 22.8 %; MCH 28.8 pg (27.0-33.0); MCHC 34.8 % (32.0-36.0); MCV 83 fL (80-95); MPV 9.4 fL (8.0-11.0); Monocytes % 6.1 %; Neutrophils % 68.7 %; Platelet Count 266 10^3/uL (130-400); RBC 4.37 10^6/uL (3.93-5.22); RDW 12.8 % (11.7-14.6); RDW-SD 38.8 fL; WBC 8.82 10^3/uL (4.4-10.8)
[2024-06-27 10:30] LABS: TSH (W/Ref FT4) 1.32 uIU/mL (0.36-3.74)
[2024-06-27 19:13] LABS: Hepatitis B Surface Ag Negative (Negative)
[2024-06-27 19:41] LABS: Hepatitis C Ab w Rflx HCV PCR Negative (Negative)
[2024-06-27 19:45] LABS: HIV-1/2 Ag & Ab Screen Negative (Negative)
[2024-06-28 10:22] LABS: Rubella IgG Ab (UVM) Positive (See Note)
[2024-06-28 10:24] LABS: Varicella IgG Antibody Positive (See Note)
[2024-06-29 22:06] LABS: Syphilis IgG w/Reflex Nonreactive (Nonreactive)
== END 2024-06-27 02:16 | disposition home or self-care (01) ==
LOC: LBO 02:16
PROVIDERS: Advanced Practice Midwife; Visit Provider Advanced Practice Midwife
DX: Z34.91 Encounter for supervision of normal pregnancy, unspecified, first trimester (principal)
CPT/HCPCS: 36415; 86787; 86803; 86850; 86900; 86901; 87340; 87389; 84443; 85025; 86762; 86780

== ENCOUNTER 2024-06-27 10:02 | Outpatient (REF) | payer MEDICAID, SELFPAY | END 2024-06-27 10:03 | disposition home or self-care (01) | LOC: LBN 10:02 | PROVIDERS: Visit Provider Advanced Practice Midwife | DX: Z34.91 Encounter for supervision of normal pregnancy, unspecified, first trimester (principal) | CPT/HCPCS: 87491; 87591; 87086 ==

== ENCOUNTER 2024-07-26 11:20 | Outpatient (REF) | payer MEDICAID, SELFPAY ==
[2024-07-27 12:04] LABS: Chlamydia Result Negative (Negative); GC Result Negative (Negative)
== END 2024-07-26 11:21 | disposition home or self-care (01) ==
LOC: LBN 11:20
PROVIDERS: Advanced Practice Midwife; Visit Provider Advanced Practice Midwife
DX: Z34.91 Encounter for supervision of normal pregnancy, unspecified, first trimester (principal); Z3A.10 10 weeks gestation of pregnancy
CPT/HCPCS: 87491; 87591

== ENCOUNTER 2024-08-16 02:53 | Outpatient (CLI) | payer MEDICAID, SELFPAY ==
--- NOTE | 2024-08-16 07:00 | DI.US_ITS ---
Exam(s) US OB 2-3 TRIMESTER EXAM: US OB 2-3 TRIMESTER CLINICAL HISTORY: SURVEY,Z34.91. TECHNIQUE: Transabdominal obstetrical ultrasound was performed. COMPARISON: US US OB 1ST TRIMESTER from 05/16/2024 FINDINGS: There is a single viable intrauterine gestation with cardiac activity identified-153 bpm. Amniotic fluid: There is a normal amount of amniotic fluid. Placental location: The placenta is anterior grade 1,with no evidence of placenta previa.Distance fro m tip of placenta to the internal cervical os is 3.7 cm ANATOMY: A 3 vessel umbilical cord is seen. A four-chamber cardiac view was obtained. Right and left ventricular outflow tracts were imaged. There are no obvious abnormalities of the spinal column evident. There is no obvious abnormal ity of the anterior abdominal wall. stomach and urinary bladder are identified and there is no evidence of hydronephrosis. No abnormalities of the upper lip region are identified. No evidence of choroid plexus cysts i n the brain. Dating parameters place this at approximately 19 weeks and 5 days gestational age. BPD measures 20 weeks and 0 days HC measures 20 weeks and 0 days AC measures 19 weeks and 6 days FL measures 19 weeks and 1 day Estimated weight is 302 gm-0 pounds, 11 ounces Fetus is at the 64th percentile on the Hadlock scale. IMPRESSION:: Single viable intrauterine gestation which is approximately 19 weeks and 5 days gestati onal age, implying an DESHAUN of January 05, 2025. There are no obvious anomalies evident on today's study. The placenta is anterior with no evidence of placenta previa. There is a normal amount of amniotic fluid. DATA REPOSITORY:
== END 2024-08-16 03:13 ==
PROVIDERS: PCP Physician Assistant; Visit Provider Advanced Practice Midwife
DX: Z34.91 Encounter for supervision of normal pregnancy, unspecified, first trimester (principal); Z3A.10 10 weeks gestation of pregnancy
CPT/HCPCS: 76805

== ENCOUNTER 2024-09-21 13:16 | Emergency (ER) | payer MEDICAID, SELFPAY ==
[2024-09-21] VITALS (30 sets, daily range): BP systolic 98–109; BP diastolic 54–61; PULSE 66–91; RESP 9–22; TEMP 36.8; O2SAT 95–100
--- NOTE | 2024-09-21 13:30 | RT.EKG_ITS ---
APPROVED REPORT Exam: Resting ECG Reason for Exam: Dyspnea Patient Location: E HR:74 bpm ECG Measurements Heart Rate 74 AXIS WI 147 P 12 QRSd 93 QRS 58 QT 390 T 33 QTc 433 Conclusion Sinus rhythm...normal P axis, V-rate 60- 99 I have reviewed and interpreted ECG and agree with software generated interpretation.
--- NOTE | 2024-09-21 13:42 | ED.GENADUL_ITS ---
Discharge Plan Disposition Patient Disposition: Home Condition: Good Discharge Details Clinical Impression: Shortness of breath, Shortness of breath during Primary Care Provider: Cory Herrera ED Provider: Yolanda Gaspar Home Meds and New Rx's Prescriptions: Continued acetaminophen [Tylenol Extra Strength] 500 mg tablet 1,000 mg PO Q6H PRN (Reason: migraine headache) Patient Comments: PRN famotidine 20 mg tablet 20 mg PO DAILY Qty: 30 8RF cholecalciferol (vitamin D3) 50 mcg (2,000 unit) capsule 50 mcg PO DAILY Qty: 90 6RF Classic 28 mg iron- 800 mcg tablet 1 tab PO DAILY Allergy Relief (loratadine) 10 mg capsule 10 mg PO DAILY Tums E-X 300 mg (750 mg) tablet,chewable 300 mg PO BID Discharge Instructions Instructions: Shortness of Breath, Adult ED Additional Instructions: As we discussed, both the RADIATION ENGINEER and myself are reassured by your exam and your labs to be obtained today. However, we do feel that you should have an outpatient cardiac echocardiogram. Referral for this has been sent. You should hear from them to schedule but I do encourage you to call on Tuesday is the soonest they are able to complete this test would be Tuesday. If however, you develop any increased shortness of breath, chest pain, difficulty breathing or other new/worsening symptom please seek care urgently once again. RADIATION ENGINEER will also be reaching out to schedule follow-up with their department next week. Referrals: Cory Herrera [Primary Care Provider] - [facility] General Date/Time Provider Initiated Documentation: 09/21/24 13:37 . Limitations to Documentation: no limitations . Information obtained by: patient, RN notes reviewed and old records reviewed . History of Present Illness 28 year old F presents to the emergency department with the chief complaint of SOB, described as moderate, Quality is described as other (denies any pain), Patient started experiencing this day(s) (2) and it has been intermittent. other things that improve symptom(s), (specific positions, laying on left side improves) Other factors that worsen symptoms (laying flat) . Patient notes shortness of breath; denies chest pain, cough, diaphoresis, fever/chills, headaches, loss of appetite, malaise, nausea/vomiting, rash, syncope and weakness. Patient did receive the following treatments prior to arrival, none Related Data Home Medications ?Medication ?Instructions ?Recorded ?Confirmed acetaminophen 500 mg tablet 1,000 mg PO Q6H PRN migraine 12/08/18 09/21/24 (Tylenol Extra Strength) headache vits no.126-ferrous fum 1 tab PO DAILY 06/27/24 09/21/24 28 mg iron-folic acid 800 mcg tablet (Classic ) calcium carbonate (Tums E-X) 300 mg PO BID 08/16/24 09/21/24 loratadine 10 mg capsule (Allergy 10 mg PO DAILY 08/16/24 09/21/24 Relief (loratadine)) cholecalciferol (vitamin D3) 50 50 mcg PO DAILY #90 caps 09/13/24 09/21/24 mcg (2,000 unit) capsule famotidine 20 mg tablet 20 mg PO DAILY #30 tabs 09/13/24 09/21/24 Previous Rx's ?Medication ?Instructions ?Recorded cholecalciferol (vitamin D3) 50 50 mcg PO DAILY #90 caps 09/13/24 mcg (2,000 unit) capsule famotidine 20 mg tablet 20 mg PO DAILY #30 tabs 09/13/24 Allergies Allergy/AdvReac Type Severity Reaction Status Date / Time azithromycin Allergy Mild RASH Verified 09/21/24 13:40 naproxen AdvReac Intermediate Nausea Verified 09/21/24 13:40 PEDIZOL Allergy Intermediate I have Uncoded 09/21/24 13:40 trouble breathing General Stated Complaint: SOB SARAH: 3 Review of Systems Constitutional Constitutional: Reports as per HPI, Denies chills, Denies fever(s), Denies headache(s), Denies lethargy and Denies poor appetite ENT Ears, Nose, Mouth, and Throat: Denies dizziness and Denies headache(s) Cardiovascular Cardiovascular: Reports as per HPI Respiratory Respiratory: Reports as per HPI, Denies chest congestion, Denies cough, Denies pain on inspiration and Denies pain with cough Gastrointestinal Gastrointestinal: Reports as per HPI, Denies abdominal pain, Denies diarrhea, Denies nausea and Denies vomiting Musculoskeletal Musculoskeletal: Reports as per HPI and Denies back pain Integumentary/Breasts Skin/Breast: Reports as per HPI and Denies rash Neurologic Neurologic: Reports as per HPI, Denies dizziness and Denies headache(s) Exam Const General: cooperative, healthy appearing, comfortable, no acute distress and well developed Nutritional Appearance: average body habitus and well nourished Orientation: alert, awake and oriented x3 HENMT Head: normal to inspection Mouth: moist mucous membranes Chest Chest: normal inspection of the chest, normal palpation of entire chest wall and no crepitus Resp Effort & Inspection: normal respiratory effort, able to speak in complete sentences and no respiratory distress Auscultation: clear to auscultation bilaterally, no rales, no rhonchi and no wheezes Cardio Rate: regular rate Rhythm: regular rhythm Heart Sounds: S1 normal and S2 normal GI Inspection: normal to inspection (appropriate for gestational age) Palpation: nontender Back/Spine/Pelvis Thoracic/Lumbar Spine: thoracic and lumbar spine normal to inspection Skin General skin exam: no rashes or lesions noted Trauma: no lacerations or abrasions Neuro General: patient alert, patient awake and patient oriented x3 Cognition: normal cognition Speech: speech normal Gait: normal gait Extrem General: normal to inspection, capillary refill normal, no pedal edema, no calf tenderness and normal gait Course Vital Signs Vital signs: Vital Signs Temperature 36.8 C 09/21/24 13:35 Pulse 75 09/21/24 13:35 Respiratory Rate 20 09/21/24 13:35 Blood Pressure 101/61 09/21/24 13:35 Pulse Oximetry 100 09/21/24 13:35 Temperature 36.8 C 09/21/24 13:35 Pulse 75 09/21/24 13:35 Respiratory Rate 20 09/21/24 13:35 Blood Pressure 101/61 09/21/24 13:35 Pulse Oximetry 100 09/21/24 13:35 Pain Level 0 09/21/24 13:35 Medical Decision Making Patient is a pleasant 28-year-old female G3. 2, 25 weeks gestation, presenting chief complaint of shortness of breath began 2 days ago. She reports that the shortness of breath is primarily positional. She has had some lightheadedness associated with this and can feel like she cannot get her heart beat in her breathing to match. She denies any calf pain. Has not had a history of DVT. She does have a history of cardiac murmur but states that this has not been evaluated since she was a senior in high school when she had exertional symptoms. She does report that the symptoms she is having today are similar to her previous symptoms from when she was in high school. She did not have any of the symptoms on her previous pregnancies. She denies any recent illness. Denies any fever/chills, cough, congestion. has had anemia in erik past. has also struggled wtih GERD but reports she is treating this and does not find it is associated with PO intake. Wrosenins with sudden movements, worsens when laying supine but tolerates laying on side well. This may also be associated with . She has no CP, unlikely pericarditis. On exam, patient appears nontoxic. She is hemodynamically stable. Her lungs are clear, normal cardiac exam. Do not appreciate a murmur at this point. I did examine her in a few different positions. Abdomen is nontender, I did ultrasound the abdomen was able to see good movement of the baby, heart rate 140s or 50s. She has no lower extremity edema. No calf tenderness. Patient I discussed potential differentials. Initially, I was concerned for potential pulmonary emboli. However, the patient's not having significant exertional shortness of breath, she is not hypoxic or tachycardia. She was road tested here and was normal. Oxygen is 100% on room air. Without any lower extremity swelling, pain or other symptoms to suggest pulmonary emboli, I do not feel its appropriate at this point to work this up further. Symptoms seem to be more so when she is laying flat on her back and finds relief with rolling to her left side which may be associate with IVC compression due to her gestational age. I also considered other cardiac etiologies such as exacerbation of her underlying cardiac etiology. On review of her chart, it was noted that she had mild aortic regurg in 2014. She has not had further workup for this historically. She has not had exacerbation of this during her previous pregnancies. I do not see any evidence to suggest an infectious etiology patient having any cough or cold symptoms. I did run a flu and COVID test out of abundance of caution, these are negative. She does not appear to be fluid overloaded or have findings to suggest CHF. Again, no findings of pneumonia. No recent trauma to the chest good lung sounds, not consistent with pneumothorax. Patient does not a IV drug user, never has been. She does not smoke. At this point, is a more concern about cardiac etiology. Were not able to obtain a echocardiogram today as there is no echo techs available. ECG reviewed by Dr. Asher, no acute abnormality. Labs reviewed. No leukocytosis. Stable H&H. CMP without significant abnormality. Troponin within normal limits. As the patient's been having the symptoms for few days, I do not feel that a repeat is warranted at this point. I reached out to the patient's RADIATION ENGINEER team. RADIATION ENGINEER clinician evaluated the patient and she agrees with assessment being more concerning for cardiac etiology likely requiring an echocardiogram. Not consistent with pulmonary emboli, endocarditis, infectious etiology, metabolic disorder, dissection, pneumothorax. Labs thinking more about exacerbation of her previously diagnosed valvulopathy. However, RADIATION ENGINEER was thinking of a cardiomyopathy associated with . She agrees that patient is stable and appropriate for d/c to home with plan to go for outpatient echo as soon as which is likely next Tuesday. Again, the patient has been hemodynamically stable throughout her whole time here. She feels safe to go home. Is able to return if she develops any new or worsening symptoms. Strict return precautions were discussed. We did give her the referral for the echocardiogram and she will call on Tuesday to ensure that appointment is as soon as possible, likely on Tuesday. All of her questions and concerns were addressed and she is agreement this plan. RADIATION ENGINEER is having her team reach out to schedule follow-up next week. All of her questions and concerns were addressed she is agreement this plan. This documentation was generated using [employer] system, please disregard any oddities of phrase or misspellings. Quality:SDOH Health Related Social Needs: No Data to Display PFSH All Active Problems (Updated 09/21/24 @ 17:10 by HOPE Pinzon) Shortness of breath during (Acute) Shortness of breath (Acute) Sciatica (Acute) (Acute) Back pain affecting (Acute) Rh negative state in antepartum period (Acute) (Acute) Migraine headache with aura (Acute 03/04/15) Medical History (Updated 09/21/24 @ 17:10 by HOPE Pinzon) Term delivered Care and examination of lactating mother care and examination cramps Spontaneous onset of labor Coccygeal pain since first delivery Neck pain Anxiety after her first . Saw a counselor Family history of thyroid disease Palpitations Heart murmur GERD (gastroesophageal reflux disease) Tension headache (03/04/15) Surgical History History of esophagogastroduodenoscopy (EGD) Family History Mother Hypertension Ulcerative colitis Migraine Maternal Grandfather Parkinsons COPD (chronic obstructive pulmonary disease) Diabetes Hypertension Maternal Grandmother Rheumatoid arthritis Hypertension Thyroid disease Brother Depression Social History Smoking/Tobacco Use Status: Never Smoking risk assessment performed?: Yes Alcohol Intake: current Alcohol Intake frequency: a few times a month Alcohol type: beer and wine Drug use: Never Substance use type: does not use Details: No alcohol since the end of september, in the past may have one beer or wine cooler every week or so. Household members: spouse and other Details: during the summer. H - works on [employer]. 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 Do you feel safe at home: Yes Do you feel safe in your relationship?: Yes Female Reproductive History Menstrual Age of Menarche: 13 control method: none History History 3 Para 2 Hx # Term Pregnancies 2 Multiple births 0 Hx # Pregnancies 0 Ectopic pregnancies 0 AB induced 0 Hx Number of Living Children 2 AB spontaneous 1 Past Pregnancies Del. Date GA/Weeks # Preg Succ Route Wgt Sex Labor Lgth Anesth esia Location [facility] 12/28/18 9 No 02/21/20 37 No Yes vaginal 3033.399 g Female 6 hours Kole Adler CNM 02/12/22 39 No Yes vaginal 3314.059 g Female 6hrs 47 min ANUSHKA Reynoso Delivery Date: 12/28/18 Last Updated by: Mary Chow LPN 1st trimester loss, SAB, Dr. Castle Delivery Date: 02/21/20 Last Updated by: Sindi Wilkinson IOL for PROM, one miso, fast labor, Lavell Delivery Date: 02/12/22 Last Updated by: Sindi Wilkinson spont and fast labor, Dre Kimbrough
[2024-09-21 15:35] LABS: Abs Immature Grans 0.05 10^3/uL (0.0-0.06); Absolute Basophil Count 0.03 10^3/uL (0.0-0.2); Absolute Eosinophil Count 0.17 10^3/uL (0.0-0.7); Absolute Lymphocyte Count 2.68 10^3/uL (1.2-3.4); Basophils % 0.3 %; Eosinophils % 1.6 %; HCT 34.6 % (36.0-46.0); HGB 11.9 g/dL (11.2-15.7); Immature Grans % 0.5 %; Lymphocytes % 24.8 %; MCH 29.2 pg (27.0-33.0); MCHC 34.4 % (32.0-36.0); MCV 85 fL (80-95); MPV 9.7 fL (8.0-11.0); Monocytes % 6.5 %; Neutrophils % 66.3 %; Platelet Count 258 10^3/uL (130-400); RBC 4.08 10^6/uL (3.93-5.22); RDW 12.9 % (11.7-14.6); WBC 10.82 10^3/uL (4.4-10.8)
[2024-09-21 15:37] LABS: Absolute Neutrophil Count 7.17 10^3/uL (1.2-6.7)
[2024-09-21 15:57] LABS: ALT 19 U/L (14-59); AST 17 U/L (15-37); Alkaline Phosphatase 81 U/L (46-116); Anion Gap 10.4 mmol/L (3-11); BUN 8 mg/dL (7-18); Bilirubin, Total 0.27 mg/dL (0.2-1.0); CO2 24.6 mmol/L (21.0-32.0); CREATININE 0.5 mg/dL (0.55-1.02); Chloride 105 mmol/L (98-107); Estimated GFR 131.75 (mL/min/1.73m2); Glucose 74 mg/dL (74-106); Magnesium 1.9 mg/dL (1.8-2.4); Potassium 3.8 mmol/L (3.5-5.1); Sodium 140 mmol/L (136-145)
[2024-09-21 16:00] LABS: Troponin I < 4 ng/L (<or=51)
[2024-09-21 17:02] LABS: Troponin I < 4 ng/L (<or=51)
[2024-09-21 17:15] LABS: Bilirubin Negative (Negative); Blood Negative (Negative); Clarity Clear (Clear); Glucose Negative (Negative); Ketones Negative (Negative); Leukocyte Esterase Moderate (Negative); Nitrite Negative (Negative); Specific Gravity 1.015 (1.005-1.025); Urobilinogen 0.2 mg/dL (Up to 0.2)
[2024-09-21 17:25] LABS: Bacteria Rare HPF (Negative); C & S Indicated? No; Crystals Negative HPF (Negative); Epithelial Cells Moderate HPF (Negative); Mucus Negative (Negative); RBC 0-2 HPF (0-2)
== END 2024-09-21 17:26 | disposition home or self-care (01) ==
PROVIDERS: Emergency Provider Physician Assistant; PCP Physician Assistant
DX: O99.891 Other specified diseases and conditions complicating pregnancy (principal); R06.02 Shortness of breath; Z3A.25 25 weeks gestation of pregnancy
CPT/HCPCS: 36415; 80053; 87426; 93005; 99284; 81003; 81015; 83735; 84484; 85025; 93010; 99283

== ENCOUNTER 2024-09-25 11:58 | Outpatient (CLI) | payer MEDICAID, SELFPAY ==
--- NOTE | 2024-09-25 | DI.US_ITS ---
APPROVED REPORT EXAM: Comprehensive 2D, Doppler, and color-flow Echocardiogram Patient Location: Out-Patient Railroad Car Checker: Keiko Joaquin RT (R) (CT) [facility] Rhythm: NSR Indications: 25 weeks , h/o murmur, aortic regurgitation. Other Information Study Quality: Good Conclusion Normal left ventricular wall thickness and chamber size. Ejection fraction is 60%. Wall motion is n ormal Normal right ventricular size and function Both atria are normal in size The aortic valve is structurally normal, trileaflet, with trace regurgitation There is no additional significant valvular disease Estimated right ventricular systolic pressure is 18 mmHg Wall motion Left Ventricle The left ventricle is normal size. The left ventricular systolic function is normal. The left ventric ular ejection fraction is within the normal range. There is normal left ventricular wall thickness. T here is normal LV segmental wall motion. The left ventricular diastolic function is normal. There is no ventricular septal defect visualized. No left ventricle thrombus noted on this study. LVEF is 60%. Right Ventricle The right ventricle is normal size. The right ventricular systolic function is normal. There is pacheco l right ventricular wall thickness. Atria The left atrium size is normal. The right atrium size is normal. The interatrial septum is intact wit h no evidence for an atrial septal defect. Aortic Valve The aortic valve is normal in structure. There is no aortic valvular stenosis. Trace aortic regurgita tion. Mitral Valve The mitral valve is normal in structure. No evidence of mitral valve stenosis. Trace mitral regurgita tion. Tricuspid Valve The tricuspid valve is normal in structure. There is no tricuspid valve stenosis. Trace tricuspid reg urgitation. The RVSP is 18 mmHg. Pulmonic Valve Pulmonic valve is grossly normal in structure. There is no pulmonic valvular stenosis. Trace to mild pulmonic regurgitation. Great Vessels The aortic root is normal in size. The pulmonary artery is normal. The ascending aorta is normal in s ize. IVC is normal in size and collapses >50% with inspiration. Pericardium There is no pericardial effusion. There is no pleural effusion.
== END 2024-09-25 12:18 ==
LOC: DI 11:59
PROVIDERS: PCP Physician Assistant; Visit Provider Physician Assistant
DX: Z3A.25 25 weeks gestation of pregnancy (principal); R01.1 Cardiac murmur, unspecified; I35.1 Nonrheumatic aortic (valve) insufficiency
CPT/HCPCS: 93306

== ENCOUNTER 2024-10-12 00:19 | Outpatient (CLI) | payer MEDICAID, SELFPAY ==
[2024-10-12 10:02] LABS: HCT 34.1 % (36.0-46.0); HGB 11.5 g/dL (11.2-15.7); MCH 28.8 pg (27.0-33.0); MCHC 33.7 % (32.0-36.0); MCV 86 fL (80-95); MPV 9.5 fL (8.0-11.0); Platelet Count 245 10^3/uL (130-400); RBC 3.99 10^6/uL (3.93-5.22); RDW 12.8 % (11.7-14.6); RDW-SD 39.7 fL; WBC 10.12 10^3/uL (4.4-10.8)
[2024-10-12 10:34] LABS: Glucose,1 Hr (Glucola) 105 mg/dL (80-140)
== END 2024-10-12 00:20 | disposition home or self-care (01) ==
LOC: LBO 00:19
PROVIDERS: PCP Physician Assistant; Visit Provider Advanced Practice Midwife
DX: Z34.92 Encounter for supervision of normal pregnancy, unspecified, second trimester (principal)
CPT/HCPCS: 36415; 82950; 85027; 86850; 90384

== ENCOUNTER 2024-12-07 13:51 | Outpatient (REF) | payer MEDICAID, SELFPAY | END 2024-12-07 13:52 | disposition home or self-care (01) | LOC: LBN 13:51 | PROVIDERS: PCP Physician Assistant; Visit Provider Advanced Practice Midwife | DX: Z34.93 Encounter for supervision of normal pregnancy, unspecified, third trimester (principal) | CPT/HCPCS: 87081 ==

== ENCOUNTER 2024-12-26 10:02 | Outpatient (CLI) | payer MEDICAID, SELFPAY ==
[2024-12-26 10:44] VITALS: BP 109/64; PULSE 77; TEMP 36.7
[2024-12-26 11:33] LABS: ROM Plus Negative
--- NOTE | 2024-12-26 11:52 | W.OBNST ---
Date of service: 12/26/24 Time of Service: 11:55 NST Evaluation Reason for NST Reasons for Nonstress Test: OTHER, SEE COMMENT Reason for NST Other: Rule out rupture Gestational Age Gestational Age in Weeks and Days: 38 Weeks and 1Days Test and Monitor Explained Test/Monitor Explained: Test Explained and Monitor Explained Vital Signs Blood Pressure: 109/64 Pulse: 77 Temperature: 98.1 F Urine Results Urine Protein: Negative Urine Ketones: Negative Urine Glucose: Negative Urine Blood: Negative NST Information Time on Monitor: 10:45 Date off Monitor: 12/26/24 Time off Monitor: 11:39 NST Interventions: PO Hydration NST Evaluation Patient States Movement: Present FHR Baseline: 125 Variability: Moderate 6-25 bpm Accelerations: 15x15 Decelerations: None NST Results: Reactive Note Ultrasound Done: N/A. NST Note Note: Marta has been having frequent contractions at night. She leaked a small amt of fluid this morning. Neg Nitrazine, neg pooling, ROm plus neg. Reactive NST. Return with active labor or ROM NST Reviewed and Verified by: Kelsey Adler
[2024-12-26 11:56] VITALS: BP 109/64; PULSE 77; TEMP 36.7
== END 2024-12-26 11:54 | disposition other institution (70) ==
LOC: BCD 10:05 → OBS 10:41
PROVIDERS: PCP Physician Assistant; Visit Provider Advanced Practice Midwife
DX: O47.1 False labor at or after 37 completed weeks of gestation (principal); Z3A.38 38 weeks gestation of pregnancy
CPT/HCPCS: 84112; 59025

== ENCOUNTER 2025-01-03 18:01 | Inpatient (IN) | payer MEDICAID, SELFPAY ==
[2025-01-03 17:46] LABS: ROM Plus Negative
[2025-01-03 18:17] LABS: HCT 34.2 % (36.0-46.0); HGB 11.6 g/dL (11.2-15.7); MCH 28.2 pg (27.0-33.0); MCHC 33.9 % (32.0-36.0); MCV 83 fL (80-95); MPV 9.8 fL (8.0-11.0); Platelet Count 241 10^3/uL (130-400); RBC 4.11 10^6/uL (3.93-5.22); RDW 13.2 % (11.7-14.6); RDW-SD 39.2 fL; WBC 13.22 10^3/uL (4.4-10.8)
[2025-01-03 19:33] VITALS: BP 115/71; PULSE 69
[2025-01-03] MEDS: miSOPROStol 25 MCG TAB PO (19:57)
[2025-01-03 20:25] VITALS: BP 115/71; PULSE 69; RESP 16; TEMP 36.1
[2025-01-03 20:39] VITALS: BP 115/78; PULSE 68; TEMP 36
[2025-01-03 20:47] VITALS: BP 115/71; PULSE 69; RESP 16; TEMP 36.1
[2025-01-03 22:09] VITALS: BP 120/63; PULSE 68; TEMP 36.3
--- NOTE | 2025-01-03 23:20 | W.PM.OBHPL1 ---
Date of service: 01/03/25 Time of Service: 23:20 Assessment and Plan Assessment and plan (1) Encounter for induction of labor: Status: Acute Assessment and plan: Discussed the option of cervical ripening and she and her partner William chose to proceed with cervical ripening at this time. Will start oral misoprostol per protocol. OB-HPI Labor/Delivery History of Present Illness Reason for Visit: NST Chief Complaint: Suspected Rupture of Membranes (leaking a small amount of fluid) , Associated Signs and Symptoms of Suspected ROM: cramping. DESHAUN Calculator Estimated Delivery Date Method Current WG Current Estimate 01/08/25 Ultrasound #1 39w 2d Other Estimates 12/10/24 LMP (Certain) 43w 3d Comments: Marta called and reported that she was leaking a small amount of fluid. Neg pooling and neg ROM plus. Occasional mild to mod contractions. Marta has a history of precipitous labor and History of Present Expected Delivery Route/Plan - CNM FOB/ - Carie Martínez (3rd child together) BB yes to circ unmedicated, maybe use tub, likes H&K for , no nitrous Planning to pump and feed GBS negative Specific Issues/Plan 1. Hx migraines, takes tylenol during 2. cfDNA low risk male, known CF carrier negative, 20wk US NML 3. 5P screen neg, Phq9=2 4. Rh neg, RhoGam @ 28 wks 10/12/24 5. Low back pain and sciatica - Referral to PT placed 6. ED visit at 24 wks for SOB, palpitations. 09/25/24 echo-card no evidence of valvular issues & EFW 60% 7. Advised foot exercises and magnesium supplement for foot cramps PFSH All Active Problems (Updated 01/03/25 @ 23:26 by Kelsey Adler CNM) Encounter for induction of labor (Acute) Sciatica (Acute) (Acute) Back pain affecting (Acute) Rh negative state in antepartum period (Acute) Migraine headache with aura (Acute 03/04/15) Medical History (Updated 01/03/25 @ 23:26 by Kelsey Adler CNM) Term delivered Care and examination of lactating mother care and examination cramps Spontaneous onset of labor Coccygeal pain since first delivery Neck pain Anxiety after her first . Saw a counselor Family history of thyroid disease Palpitations Heart murmur GERD (gastroesophageal reflux disease) Tension headache (03/04/15) Surgical History History of esophagogastroduodenoscopy (EGD) Family History Mother Hypertension Ulcerative colitis Migraine Maternal Grandfather Parkinsons COPD (chronic obstructive pulmonary disease) Diabetes Hypertension Maternal Grandmother Rheumatoid arthritis Hypertension Thyroid disease Brother Depression Social History Smoking/Tobacco Use Status: Never Smoking risk assessment performed?: Yes Alcohol Intake: current Alcohol Intake frequency: a few times a month Alcohol type: beer and wine Drug use: Never Substance use type: does not use Details: No alcohol since the end of september, in the past may have one beer or wine cooler every week or so. Household members: spouse and other Details: during the summer. H -works on [employer]. 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 Do you feel safe at home: Yes Do you feel safe in your relationship?: Yes Female Reproductive History Menstrual Age of Menarche: 13 control method: none History History 4 Para 2 Hx # Term Pregnancies 2 Multiple births 0 Hx # Pregnancies 0 Ectopic pregnancies 0 AB induced 0 Hx Number of Living Children 2 AB spontaneous 1 Past Pregnancies Del. Date GA/Weeks # Preg Succ Route Wgt Sex Labor Lgth Anesthesia Location Prov Complic 12/28/18 9 No 02/21/20 37 No Yes vaginal 6 lb 11 oz Female 6 hours Alayna Adler CNM 02/12/22 39 No Yes vaginal 7 lb 4.9 oz Female 6hrs 47 min ANUHSKA Reynoso Delivery Date: 12/28/18 Last Updated by: Mary Chow LPN 1st trimester loss, SAB, Dr. Castle Delivery Date: 02/21/20 Last Updated by: Sindi Wilkinson IOL for PROM, one miso, fast labor, Lavell Delivery Date: 02/12/22 Last Updated by: Sindi Wilkinson spont and fast labor, Dre Kimbrough Meds Allergies and Home Medications Allergies Allergy/AdvReac Type Severity Reaction Status Date / Time azithromycin Allergy Mild RASH Verified 01/01/25 15:42 banana Allergy Other (See Verified 01/01/25 15:42 Comment) Latex, Natural Rubber Allergy Skin Rash Verified 01/01/25 15:42 naproxen AdvReac Intermediate Nausea Verified 01/01/25 15:42 PEDIZOL Allergy Intermediate I have Uncoded 01/01/25 15:42 trouble breathing Home Medications ?Medication ?Instructions ?Recorded ?Confirmed ?Type acetaminophen 500 mg tablet 1,000 mg PO Q6H PRN migraine 12/08/18 01/01/25 History (Tylenol Extra Strength) headache vits no.126-ferrous fum 1 tab PO DAILY 06/27/24 01/01/25 History 28 mg iron-folic acid 800 mcg tablet (Classic ) calcium carbonate (Tums E-X) 300 mg PO BID 08/16/24 01/01/25 History cholecalciferol (vitamin D3) 50 50 mcg PO DAILY #90 caps 09/13/24 01/01/25 Rx mcg (2,000 unit) capsule loratadine 10 mg capsule (Allergy 10 mg PO PRN 10/12/24 01/01/25 History Relief (loratadine)) famotidine 20 mg tablet 20 mg PO BID #60 tabs 11/09/24 01/01/25 Rx Exam Physical Exam Vital signs: Temp Pulse Resp BP 97.3 F L 68 16 120/63 01/03/25 22:09 01/03/25 22:09 01/03/25 20:47 01/03/25 22:09 Vital Signs Reviewed: Yes Constitutional Constitutional: no acute distress Detailed Labor and Delivery Exam Dilation: 2 Effacement (%): 50 station: -2 Cervix position: mid Consistency: medium Calderon Score: Cervical Points Exam 0 1 2 3 Dilation Closed 1-2cm 3-4 cm 5-6cm Effacement 0-30% 40-50% 60-70% 80% Consistency Firm Medium Soft Station -3 -2 -1,0 +1,+2 Position Posterior Mid Anterior Amniotic Membrane Status: Intact Monitor Mode: External Contraction Frequency(min): every 3-5 Contraction Duration(sec): 60 Contraction Intensity: Moderate Fetus A Heart Rate Baseline: 140 Monitor Accelerations: 15 X 15 Monitor Decelerations: None Variability: Moderate (6-25 BPM) Presentation: Cephalic Categories: Category I HEENT Exam HEENT Exam: Normal Respiratory Exam Respiratory Exam: Normal Cardiovascular Exam Cardiovascular Exam: Normal Abdominal Exam Abdominal Exam: Normal Exam Exam: Normal Extremities Exam Extremities Exam: Normal Skin Exam Skin Exam: Normal Psychiatric Exam Psychiatric Exam: Normal Results Abnormal Lab Findings: Abnormal Labs 01/03/25 18:08 WBC 13.22 H Hct 34.2 L Risk Assessment Risk for Shoulder Dystocia Historical/Initial OB: NEGATIVE FOR: Pelvic Abnormality, Pre- BMI>30, Previous Shoulder Dystocia or Previous Macrosomia 36 Weeks: NEGATIVE FOR: Current Gestational DM, EFW>4500gms or Maternal Weight Gain>40lbs 40 Weeks: NEGATIVE FOR: EFW> 4500 gms, Maternal Weight Gain >40lb or Post Dates Increased Risk?: No Risk for Pre-Eclampsia Date Initiated/Initials: not indicated Yes, if one or more: NEGATIVE FOR: Hx Pre-E/Gest HTN, Chronic HTN, Multiple Gestation, Pre-gestational DM, Renal Disease, Systemic Lupus or APA Syndrome Yes, if 2 or more: NEGATIVE FOR: Nulliparity, Age>= 35 yrs, >10yr btwn pregnancies, BMI>30, ethinicty, Mother/Sister w/ Pre-E or Previous IUGR Risk for Post- Hemorrhage Initial: NEGATIVE FOR: Multiple Gestation, Previous PPH, Known Clotting Deficiency, Grand Multiparity or Anticoagulation 36 Weeks: NEGATIVE FOR: Anemia, hgb<10, Low platelets(thrombocytopenia), Gestational HTN or Pre-E, Polyhydraminios or EFW>4500gms 40 Weeks: NEGATIVE FOR: Anemia, hgb<10, Low platelets (thrombocytopenia), Gestation HTN or Pre-E, Polyhydraminios or EFW>4500gms At Risk?: No Risks Reviewed Risks Reviewed Upon Admission: Yes
[2025-01-03 23:58] VITALS: BP 112/69; PULSE 67; TEMP 36.1
[2025-01-04] VITALS (16 sets, daily range): BP systolic 98–123; BP diastolic 56–72; PULSE 65–86; RESP 16–18; TEMP 36.3–37.1; O2SAT 96–99
[2025-01-04] MEDS: Oxytocin 10 UNITS/ML VIAL IM (02:38)
--- NOTE | 2025-01-04 02:56 | W.OBDELIVERY ---
Date of service: 01/04/25 Time of Service: 02:56 OB Labor/ Delivery Information Baby A Delivery Delivery Method: Spontaneaous Presentation: Cephalic Vertex Position: Right Occipital Anterior Cord Description-Baby A: 3 Vessels Cord Description Comment: short cord. tight nuchal x 1 Amniotic Fluid: Clear Estimated Blood Loss: 250 Delivery Outcome: Liveborn Transferred: Remains with Mother Note: Marta progressed into active labor after AROM. FHTs 140s during first stage of labor. She felt an urge to bear down and was examined. She moved to hands and knees position and had an anterior rim of cervix which reduced easily while bearing down. She began pushing well. bradycardia noted in second stage. Second stage huddle was done. Spontaneous delivery of male delivered in SEBASTIAN position. A tight nuchal cord was noted which was not reducable. The baby was delivered using a somersault technique. The baby had decreased tone and respiratory effort and the cord was clamped and cut immediately andt the baby was transferred to the infant warmer for further assessment. There was a Spontaneous cry after drying and stimulating. The placenta delivered spontaneously and appears to by intact with a three vessel cord. Pitocin 10 units IM was administered after delivery of the placenta. The perineum was inspected and it was found to be intact. The baby did breastfeed. After delivery, Mother and baby and father of the baby were stable and bonding well in the delivery room and there were no complications. Providers Nurse Senior Product Development Engineer: Kelsey Adler Nurse: Deidra Wilkinson Nurse: Francie Camp Labor/Delivery Information Number of Babies in Womb: 1 Steroids Given: None Reason Steroids Not Administered: N/A Group Beta Strep: Negative Antibiotics Administered: No Rubella Status: Immune Blood Type: O- Varicella Immunity: Immune Medication in Delivery: no Maternal Complications: None Shoulder Dystocia: No Stages of Labor Onset of Labor Date: 01/03/25 Onset of Labor Time: 16:30 ROM Baby A: 01/04/25 ROM Baby A: 00:05 ROM Total Time- Baby A: [id number] Delivery Date-Baby A: 01/04/25 Delivery Time-Baby A: 02:27 Placenta Delivery Date-Baby A: 01/04/25 Placenta Delivery Time-Baby A: 02:34 Labor-Stage 3 Duration: 7 minutes Total Length of Labor-Baby A: 9 hours and 57 minutes Placenta Cultured: No Placenta Status: Delivered Baby A Infant Gender: Male Gestational Age in Weeks/Days: 39 Weeks and 3 Days Length-Baby A: 19.75 in Score-1 Minute Interval(Baby A) Heart Rate-1 minute: 100 BPM or Greater Respiratory Effort- 1 minute: Slow Respiration/Weak Cry Muscle Tone-1 minute: Minimal Flexion/Extension Reflex Response-1 minute: Minimal Response Color-1 minute: Pallor or Cyanosis Total Score-1 minute: 5 Score-5 Minute Interval(Baby A) Heart Rate- 5 minute: 100 BPM or Greater Respiratory Effort-5 minute: Spontaneous/Strong Cry Muscle Tone-5 minute: Active Movement Reflex Response-5 minute: Prompt Response Color-5 minute: Bluish Hands or Feet Total Score- 5 minute: 9
[2025-01-04] MEDS: Acetaminophen 325 MG TAB 650 MG PO ×3 (03:04→19:50)
[2025-01-04] MEDS: Dibucaine 1% 28 GM TUBE TP (04:12)
[2025-01-04] MEDS: Hamamelis Leaf/Glycerin 100 EACH BOX PR (04:12)
--- NOTE | 2025-01-04 08:05 | W.PM.OBNL1 ---
Date of service: 01/03/25 Time of Service: 00:45 Pelvic Exam Dilation: 3 Effacement (%): 50 station: -1 Cervix Position: mid Consistency: soft Vaginal Exam Presentation: Cephalic Pooling: Negative Comments: AROM performed for a mod amount of clear fluid Contractions Monitor Mode: External Contraction Frequency(min): every 2-3 Contraction Duration(sec): 60 Intensity: Moderate/Strong Fetus A Monitor: External (US) Heart Rate Baseline: 140 Variability: Moderate (6-25 BPM) Categories: Category I FHR Rhythm: Regular Accelerations: 15 X 15 Decelerations: None Amniotic Membrane Status: Ruptured Rupture Method: Artifical Amniotic Fluid: Clear Date of Membrane Rupture: 01/03/25 Time of Membrane Rupture: 00:30 Assessment and Plan Assessment and plan (1) Encounter for induction of labor: Status: Acute Assessment and plan: continue to prvide comfort measures. Anticipate Objective Abnormal lab results 01/03/25 Range/Units 18:08 WBC 13.22 H (4.4-10.8) 10^3/uL Hct 34.2 L (36.0-46.0) % Temp Pulse Resp BP Pulse Ox 97.6 F 68 18 111/72 96 01/04/25 07:16 01/04/25 07:16 01/04/25 07:16 01/04/25 07:16 01/04/25 07:16 Laboratory Results WBC 13.22 10^3/uL (4.4-10.8) H 01/03/25 18:08 RBC 4.11 10^6/uL (3.93-5.22) 01/03/25 18:08 Hgb 11.6 g/dL (11.2-15.7) 01/03/25 18:08 Hct 34.2 % (36.0-46.0) L 01/03/25 18:08 MCV 83 fL (80-95) 01/03/25 18:08 MCH 28.2 pg (27.0-33.0) 01/03/25 18:08 MCHC 33.9 % (32.0-36.0) 01/03/25 18:08 RDW 13.2 % (11.7-14.6) 01/03/25 18:08 Plt Count 241 10^3/uL (130-400) 01/03/25 18:08 MPV 9.8 fL (8.0-11.0) 01/03/25 18:08 Membranes Rupture Negative 01/03/25 17:30 ABO/Rh O Negative 01/03/25 18:08 Antibody Screen POSITIVE 01/03/25 18:08 Antibody Identification Anti-D 01/03/25 18:08 Antigen Identification Cancelled 01/03/25 18:08 Subjective Patient Reports: New Complaints Interval history since last seen: Marta reports stronger contractions. Results Hemoglobin/Hematocrit: Hgb 11.6 g/dL (11.2-15.7) 01/03/25 18:08 Hct 34.2 % (36.0-46.0) L 01/03/25 18:08 Abnormal Lab Findings: Abnormal Labs 01/03/25 18:08 WBC 13.22 H Hct 34.2 L
--- NOTE | 2025-01-04 13:51 | W.PM.OBDISCH ---
DS: Diagnosis Discharge Diagnosis (1) Encounter for induction of labor: Status: Acute Discharge Plan Discharge Details Reason For Visit: NST Admit Date/Time: 01/03/25 18:01 Admit Provider: Kelsey Adler Attending Provider: Kelsey Adler Primary Care Provider: Cory Herrera Home Meds and New Rx's Prescriptions: No Action acetaminophen [Tylenol Extra Strength] 500 mg tablet 1,000 mg PO Q6H PRN (Reason: migraine headache) Patient Comments: PRN cholecalciferol (vitamin D3) 50 mcg (2,000 unit) capsule 50 mcg PO DAILY Qty: 90 6RF famotidine 20 mg tablet 20 mg PO BID Qty: 60 8RF Classic 28 mg iron- 800 mcg tablet 1 tab PO DAILY Tums E-X 300 mg (750 mg) tablet,chewable 300 mg PO BID Allergy Relief (loratadine) 10 mg capsule 10 mg PO PRN OB:DS Summary Summary Vaginal Delivery Method: Spontaneaous Episiotomy Description: None Laceration Description: None Laceration Extension: N/A Infant Gender-Baby A: Male Exam Physical Exam Vital signs: Temp Pulse Resp BP Pulse Ox 97.8 F 70 18 105/68 97 01/04/25 11:10 01/04/25 11:10 01/04/25 11:10 01/04/25 11:10 01/04/25 11:10 PFSH All Active Problems (Updated 01/03/25 @ 23:26 by Kelsey Adler CNM) Encounter for induction of labor (Acute) Sciatica (Acute) (Acute) Back pain affecting (Acute) Rh negative state in antepartum period (Acute) Migraine headache with aura (Acute 03/04/15) Medical History (Updated 01/03/25 @ 23:26 by Kelsey Adler CNM) Term delivered Care and examination of lactating mother care and examination cramps Spontaneous onset of labor Coccygeal pain since first delivery Neck pain Anxiety after her first . Saw a counselor Family history of thyroid disease Palpitations Heart murmur GERD (gastroesophageal reflux disease) Tension headache (03/04/15) Surgical History History of esophagogastroduodenoscopy (EGD) Family History Mother Hypertension Ulcerative colitis Migraine Maternal Grandfather Parkinsons COPD (chronic obstructive pulmonary disease) Diabetes Hypertension Maternal Grandmother Rheumatoid arthritis Hypertension Thyroid disease Brother Depression Social History Smoking/Tobacco Use Status: Never Smoking risk assessment performed?: Yes Alcohol Intake: current Alcohol Intake frequency: a few times a month Alcohol type: beer and wine Drug use: Never Substance use type: does not use Details: No alcohol since the end of september, in the past may have one beer or wine cooler every week or so. Household members: spouse and other Details: during the summer. H -works on local [employer]. 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 Do you feel safe at home: Yes Do you feel safe in your relationship?: Yes Female Reproductive History Menstrual Age of Menarche: 13 control method: none History History 4 Para 2 Hx # Term Pregnancies 2 Multiple births 0 Hx # Pregnancies 0 Ectopic pregnancies 0 AB induced 0 Hx Number of Living Children 2 AB spontaneous 1 Past Pregnancies Del. Date GA/Weeks # Preg Succ Route Wgt Sex Labor Lgth Anesthesia Location Prov Complic 12/28/18 9 No 02/21/20 37 No Yes vaginal 6 lb 11 oz Female 6 hours Alayna Adler CNM 02/12/22 39 No Yes vaginal 7 lb 4.9 oz Female 6hrs 47 min ANUSHKA Reynoso Delivery Date: 12/28/18 Last Updated by: Mary Chow LPN 1st trimester loss, SAB, Dr. Castle Delivery Date: 02/21/20 Last Updated by: Sindi Wilkinson IOL for PROM, one miso, fast labor, [place] Delivery Date: 02/12/22 Last Updated by: Sindi Wilkinson spont and fast laborDre DS: Data Vitals/I&O Vitals and I&O: Vital Signs Temperature 97.8 F 01/04/25 11:10 Temperature 96.8 F 01/03/25 20:39 Temperature Source Oral 01/04/25 11:10 Pulse 70 01/04/25 11:10 Pulse 68 01/03/25 20:39 Pulse Rhythm Regular 01/04/25 08:25 Respiratory Rate 18 01/04/25 11:10 Respiratory Depth Normal 01/03/25 20:46 Blood Pressure 105/68 01/04/25 11:10 Blood Pressure 115/78 01/03/25 20:39 Blood Pressure Mean 80 01/04/25 11:10 Pulse Oximetry 97 01/04/25 11:10 Oxygen Delivery Method Room Air 01/03/25 20:25 Oxygen Flow Rate 0 01/03/25 20:25 Intake & Output 01/03/25 01/04/25 01/04/25 23:59 11:59 23:59 Output Total 1800 / 1800 Balance -1800 / -1800 Weight 164 lb Output: Urine 1400 / 1400 Blood 400 / 400 Other: Urine Color Yellow Urine Appearance Hematuria Urine Odor None Data Completed and Pending Labs on day of discharge: Labs from last 24 hours 01/03/25 01/03/25 18:08 17:30 WBC 13.22 H RBC 4.11 Hgb 11.6 Hct 34.2 L MCV 83 MCH 28.2 MCHC 33.9 RDW 13.2 Plt Count 241 MPV 9.8 Membranes Rupture Negative ABO/Rh O Negative Antibody Screen POSITIVE Antibody Identification Anti-D Antigen Identification Cancelled
--- NOTE | 2025-01-04 14:51 | W.PM.HP.N ---
[facility] All Active Problems (Updated 01/03/25 @ 23:26 by Kelsey Adler CNM) Encounter for induction of labor (Acute) Sciatica (Acute) (Acute) Back pain affecting (Acute) Rh negative state in antepartum period (Acute) Migraine headache with aura (Acute 03/04/15) Medical History (Updated 01/03/25 @ 23:26 by Kelsey Adler CNM) Term delivered Care and examination of lactating mother care and examination cramps Spontaneous onset of labor Coccygeal pain since first delivery Neck pain Anxiety after her first . Saw a counselor Family history of thyroid disease Palpitations Heart murmur GERD (gastroesophageal reflux disease) Tension headache (03/04/15) Surgical History History of esophagogastroduodenoscopy (EGD) Family History Mother Hypertension Ulcerative colitis Migraine Maternal Grandfather Parkinsons COPD (chronic obstructive pulmonary disease) Diabetes Hypertension Maternal Grandmother Rheumatoid arthritis Hypertension Thyroid disease Brother Depression Social History Smoking/Tobacco Use Status: Never Smoking risk assessment performed?: Yes Alcohol Intake: current Alcohol Intake frequency: a few times a month Alcohol type: beer and wine Drug use: Never Substance use type: does not use Details: No alcohol since the end of september, in the past may have one beer or wine cooler every week or so. Household members: spouse and other Details: during the summer. H -works on local [employer]. 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 Do you feel safe at home: Yes Do you feel safe in your relationship?: Yes Female Reproductive History Menstrual Age of Menarche: 13 control method: none History History 4 Para 2 Hx # Term Pregnancies 2 Multiple births 0 Hx # Pregnancies 0 Ectopic pregnancies 0 AB induced 0 Hx Number of Living Children 2 AB spontaneous 1 Past Pregnancies Del. Date GA/Weeks # Preg Succ Route Wgt Sex Labor Lgth Anesthesia Location Prov Complic 12/28/18 9 No 02/21/20 37 No Yes vaginal 6 lb 11 oz Female 6 hours Alayna Adler CNM 02/12/22 39 No Yes vaginal 7 lb 4.9 oz Female 6hrs 47 min ANUSHKA Reynoso Delivery Date: 12/28/18 Last Updated by: Mary Chow LPN 1st trimester loss, SAB, Dr. Castle Delivery Date: 02/21/20 Last Updated by: Sindi Wilkinson IOL for PROM, one miso, fast labor, [place] Delivery Date: 02/12/22 Last Updated by: Sindi Wilkinson spont and fast labor, Dre Kimbrough Meds Allergies and Home Medications Allergies Allergy/AdvReac Type Severity Reaction Status Date / Time azithromycin Allergy Mild RASH Verified 01/01/25 15:42 banana Allergy Other (See Verified 01/01/25 15:42 Comment) Latex, Natural Rubber Allergy Skin Rash Verified 01/01/25 15:42 naproxen AdvReac Intermediate Nausea Verified 01/01/25 15:42 PEDIZOL Allergy Intermediate I have Uncoded 01/01/25 15:42 trouble breathing Home Medications ?Medication ?Instructions ?Recorded ?Confirmed ?Type acetaminophen 500 mg tablet 1,000 mg PO Q6H PRN migraine 12/08/18 01/01/25 History (Tylenol Extra Strength) headache vits no.126-ferrous fum 1 tab PO DAILY 06/27/24 01/01/25 History 28 mg iron-folic acid 800 mcg tablet (Classic ) calcium carbonate (Tums E-X) 300 mg PO BID 08/16/24 01/01/25 History cholecalciferol (vitamin D3) 50 50 mcg PO DAILY #90 caps 09/13/24 01/01/25 Rx mcg (2,000 unit) capsule loratadine 10 mg capsule (Allergy 10 mg PO PRN 10/12/24 01/01/25 History Relief (loratadine)) famotidine 20 mg tablet 20 mg PO BID #60 tabs 11/09/24 01/01/25 Rx Results Labs 01/03/25 18:08 Labs: Laboratory Results - last 24 hr 01/03/25 01/03/25 17:30 18:08 WBC 13.22 H RBC 4.11 Hgb 11.6 Hct 34.2 L MCV 83 MCH 28.2 MCHC 33.9 RDW 13.2 Plt Count 241 MPV 9.8 Membranes Rupture Negative ABO/Rh O Negative Antibody Screen POSITIVE Antibody Identification Anti-D Antigen Identification Cancelled Last Vital Signs Temp 97.8 F 01/04/25 11:10 Pulse 70 01/04/25 11:10 Resp 18 01/04/25 11:10 BP 105/68 01/04/25 11:10 Pulse Ox 97 01/04/25 11:10
[2025-01-04] MEDS: Docusate Sodium 100 MG CAP PO (22:35)
[2025-01-05] MEDS: Acetaminophen 325 MG TAB 650 MG PO ×3 (01:21→13:00)
[2025-01-05 07:45] VITALS: BP 97/62; PULSE 67; RESP 16; TEMP 36.6; O2SAT 97
--- NOTE | 2025-01-05 08:36 | W.PM.OBDISCH ---
Date of service: 01/05/25 Time of Service: 08:37 DS: Diagnosis Discharge Diagnosis (1) Encounter for induction of labor: Status: Acute (2) Vaginal delivery: Status: Acute (3) Single live : Status: Acute Asessment and Plan: Plan: - Follow-up in 6 weeks for a exam - RhoGAM as needed prior to discharge - care and support given - Reviewed warning signs and education - Discussed contraceptive plan: Rx given for POPs, to start 1 week before resumption of sexual activity Discharge Plan Disposition Condition: Stable Discharge Details Reason For Visit: Labor Admit Date/Time: 01/03/25 18:01 Admit Provider: Kelsey Adler Attending Provider: Kelsey Adler Primary Care Provider: Cory Herrera Hospital Course Hospital Course: Admitted from home for a labor check, stayed for augmentation. Home Meds and New Rx's Prescriptions: New norethindrone (contraceptive) [Martha] 0.35 mg tablet 0.35 mg PO DAILY Qty: 84 3RF No Action acetaminophen [Tylenol Extra Strength] 500 mg tablet 1,000 mg PO Q6H PRN (Reason: migraine headache) Patient Comments: PRN cholecalciferol (vitamin D3) 50 mcg (2,000 unit) capsule 50 mcg PO DAILY Qty: 90 6RF famotidine 20 mg tablet 20 mg PO BID Qty: 60 8RF Classic 28 mg iron- 800 mcg tablet 1 tab PO DAILY Tums E-X 300 mg (750 mg) tablet,chewable 300 mg PO BID Allergy Relief (loratadine) 10 mg capsule 10 mg PO PRN norethindrone (contraceptive) [Martha] 0.35 mg tablet 0.35 mg PO DAILY Qty: 84 3RF Discharge Instructions Additional Instructions: - Please call the office to schedule your 6 week visit - Start the progesterone only control pill at least 7 days prior to resuming sexual activity (or use condoms for the first 7 days of pill use unitl it become effective)> Stand Alone Forms: BC Instructions, BC Post Vaginal Deliver Activity:: Activity as Tolerated Equipment/Supplies:: No Equipment Needed Diet:: As Tolerated OB:DS Summary Summary Vaginal Delivery Method: Spontaneaous Episiotomy Description: None Laceration Description: None Laceration Extension: N/A Contraception Discussed Contraception Discussed: Yes, [place] Infant Gender-Baby A: Male Status at Discharge Functional status at discharge: independent ambulation Overall status at discharge: patient is progressing back to baseline Mental Status: mental status grossly normal Speech and Movement: speech and movement normal Mood: congruent mood Affect: normal affect Exam Physical Exam Vital signs: Temp Pulse Resp BP Pulse Ox 97.8 F 67 16 97/62 L 97 01/05/25 07:45 01/05/25 07:45 01/05/25 07:45 01/05/25 07:45 01/05/25 07:45 Narrative: General: well-appearing, NAD Neck: supple, NT Respiratory: CTAB, unlabored CV: NST without murmur Breast: deferred, as infant is nursing GI: soft, NT : fundus firm at 2 FB below umbilicus, Perineum deferred as intact MSK: no homans, no clonus, no edema Integument: warm, dry, pink Psychiatric: cooperative, appropriate mood and affect Physical Exam Vital signs: Temp Pulse Resp BP Pulse Ox 97.8 F 67 16 97/62 L 97 01/05/25 07:45 01/05/25 07:45 01/05/25 07:45 01/05/25 07:45 01/05/25 07:45 PFSH All Active Problems (Updated 01/05/25 @ 08:37 by Shu Smith CNM) Single live (Acute) Vaginal delivery (Acute) Encounter for induction of labor (Acute) Sciatica (Acute) (Acute) Back pain affecting (Acute) Rh negative state in antepartum period (Acute) Migraine headache with aura (Acute 03/04/15) Medical History (Updated 01/05/25 @ 08:37 by Shu Smith CNM) Term delivered Care and examination of lactating mother care and examination cramps Spontaneous onset of labor Coccygeal pain since first delivery Neck pain Anxiety after her first . Saw a counselor Family history of thyroid disease Palpitations Heart murmur GERD (gastroesophageal reflux disease) Tension headache (03/04/15) Surgical History History of esophagogastroduodenoscopy (EGD) Family History Mother Hypertension Ulcerative colitis Migraine Maternal Grandfather Parkinsons COPD (chronic obstructive pulmonary disease) Diabetes Hypertension Maternal Grandmother Rheumatoid arthritis Hypertension Thyroid disease Brother Depression Social History Smoking/Tobacco Use Status: Never Smoking risk assessment performed?: Yes Alcohol Intake: current Alcohol Intake frequency: a few times a month Alcohol type: beer and wine Drug use: Never Substance use type: does not use Details: No alcohol since the end of september, in the past may have one beer or wine cooler every week or so. Household members: spouse and other Details: during the summer. H -works on local [employer]. 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 Do you feel safe at home: Yes Do you feel safe in your relationship?: Yes Female Reproductive History Menstrual Age of Menarche: 13 control method: none History History 4 Para 2 Hx # Term Pregnancies 2 Multiple births 0 Hx # Pregnancies 0 Ectopic pregnancies 0 AB induced 0 Hx Number of Living Children 2 AB spontaneous 1 Past Pregnancies Del. Date GA/Weeks # Preg Succ Route Wgt Sex Labor Lgth Anesthesia Location [facility] 12/28/18 9 No 02/21/20 37 No Yes vaginal 6 lb 11 oz Female 6 hours Alayna Adler CNM 02/12/22 39 No Yes vaginal 7 lb 4.9 oz Female 6hrs 47 min ANUSHKA Reynoso Delivery Date: 12/28/18 Last Updated by: Mary Chow LPN 1st trimester loss, SAB, Dr. Castle Delivery Date: 02/21/20 Last Updated by: Sindi Wilkinson IOL for PROM, one miso, fast labor, [place] Delivery Date: 02/12/22 Last Updated by: Sindi Wilkinson spont and fast laborDre DS: Data Vitals/I&O Vitals and I&O: Vital Signs Temperature 97.8 F 01/05/25 07:45 Temperature 96.8 F 01/03/25 20:39 Temperature Source Oral 01/05/25 07:45 Pulse 67 01/05/25 07:45 Pulse 68 01/03/25 20:39 Pulse Rhythm Regular 01/04/25 15:30 Respiratory Rate 16 01/05/25 07:45 Respiratory Depth Normal 01/04/25 15:30 Blood Pressure 97/62 L 01/05/25 07:45 Blood Pressure 115/78 01/03/25 20:39 Blood Pressure Mean 73 01/05/25 07:45 Pulse Oximetry 97 01/05/25 07:45 Oxygen Delivery Method Room Air 01/03/25 20:25 Oxygen Flow Rate 0 01/03/25 20:25 Pain Level 2 01/04/25 22:30 Intake & Output 01/04/25 01/04/25 01/05/25 11:59 23:59 11:59 Output Total 1800 / 1800 Balance -1800 / -1800 Output: Urine 1400 / 1400 Blood 400 / 400 Other: Urine Appearance Hematuria Urine Odor None Data Completed and Pending Labs on day of discharge: Labs from last 24 hours 01/05/25 01/03/25 06:05 18:08 Antigen Identification Cancelled Screen Pending [facility] Unit Number [id number] Unit Expiration Date 06/26/2025 Product Lot # [id number]
[2025-01-05] MEDS: RHO(D) Immune Globulin 1,500 UNIT Syringe 1500 UNIT IM (09:51)
[2025-01-05] MEDS: Docusate Sodium 100 MG CAP PO (10:06)
[2025-01-05] MEDS: Hamamelis Leaf/Glycerin 100 EACH BOX PR (10:06)
== END 2025-01-05 14:00 | disposition home or self-care (01) | DRG 807 ==
LOC: BCD 18:02 → OBS 18:02
PROVIDERS: Admitting Provider Advanced Practice Midwife; PCP Physician Assistant; Visit Provider Advanced Practice Midwife
DX: O42.02 Full-term premature rupture of membranes, onset of labor within 24 hours of rupture (principal); Z37.0 Single live birth; O69.3XX0 Labor and delivery complicated by short cord, not applicable or unspecified; O69.1XX0 Labor and delivery complicated by cord around neck, with compression, not applicable or unspecified; Z3A.39 39 weeks gestation of pregnancy; O26.893 Other specified pregnancy related conditions, third trimester; Z67.91 Unspecified blood type, Rh negative
CPT/HCPCS: 36415; 84112; 85027; 85461; 86850; 86900; 86901; 90384; 59025; 86870; 86902; J2590; J2790; J3490

== ENCOUNTER 2025-06-05 13:24 | Outpatient (REF) | payer MEDICAID, SELFPAY ==
--- NOTE | 2025-06-05 13:00 | PAPFT_PTH ---
PATIENT: Marta Martínez LOC: [facility] U#:[id number] AGE/SX: 29/F ROOM: RE06/05/[address]: Sindi Wilkinson CNM : 1995 BED: DIS: 06/05/2025 SPEC #: [id number] RECD: 06/05/25 18:05 STATUS: ROSE REQ #: [id number] WISAM: 06/05/25 13:[address]: Sindi Wilkinson [facility] Cytology RECD BY: Yoanna Schroeder ENTERED: 06/05/25 18:05 SP TYPE: PAPFT OTHR DR: Cory Herrera Tissues: 1 - CX/ENDOCX FOR PAP SMEARS Procedures: PAP THIN PREP/[facility] Screening Comments: [id number]
== END 2025-06-05 13:25 | disposition home or self-care (01) ==
LOC: LBN 13:24
PROVIDERS: PCP Physician Assistant; Visit Provider Advanced Practice Midwife
DX: Z12.4 Encounter for screening for malignant neoplasm of cervix (principal)
CPT/HCPCS: 88142